=== PATIENT | female | born 1955 | race Caucasian/White ===

== ENCOUNTER 2019-06-14 19:14 | Inpatient (IN) ==
--- NOTE | 2019-06-14 20:38 | DR.GENAD ---
HPI Time Seen Time Seen by Provider: 06/14/19 20:15 PCP Primary Care Physician: DENISE AGUIRRE HPI Comment HPI Comment: PATIENT IS A 64 YEAR OLD FEMALE IN THE ER WITH SLURRED SPEECH AND INCREASING RIGHT SIDED WEAKNESS NOTED TODAY. PATIENT HAD A STROKE ONE WEEK AGO AND WAS TRANSFERRED TO [place] WHERE SHE HAD A COMPLETE WORK UP TODAY. THE SON OBSERVED HER ACTING SIMILAR TO WHEN SHE HAD THE STROKE. PATIENT HAVE HISTORY OF DIABETES AND HAVE NOT BEEN EATING OR DRINKING. SHE IS WEAK SHE ALSO HAVE BEEN SLEEPING POORLY. PATIENT SAID SHE FEEL DIFFERENT FROM WHEN SHE DID WITH THE STROKE SYMPTOMS. CURRENTLY IN THE EMERGENCY ROOM PATIENT IS ANSWERING QUESTION APPROPRIATELY. AND THE SPEECH IS CLEAR. SHE DENIES FEVER. GLUCOSE CHECK AT HOME BEFOR COMING TO THE EMERGENCY ROOM WAS 122. Complaint/Symptoms Chief Complaint Doctors Comments: SLURRED SPEECH AND INCREASING RIGHT SIDED WEAKNESS. NOTED TODAY. Chief Complaint:: PT STATES SHE JUST HAD A STROKE THE AND WAS SENT TO [place], SON STATES HE NOTED SHE HAD SLURRED SPEECH AND LEFT SIDE WASNT WORKING RIGHT, UPON ASKING TRIAGE QUESTIONS PT NOTED TO BE DIABETIC AND HAS NOT EATEN OR DRANK SINCE LAST NIGHT OR CHECKED SUGAR OR TOOK INSULIN , PT STATES SHE DOESNT FEEL THE SAME WAY WHEN SHE HAD HER STROKE THAT IT MIGHT BE FROM HER NOT EATING AND NOT SLEEPING, EDUCATED PT THE IMPORTANCE OF CHECKING SUGAR TAKING MEDICATIONS PRESCRIBED AND EATING AND DRINKING, PT AND SON STATES SUGAR 10 MINS PRODUCTION OFFICER NOTED TO BE 122, BILATERAL MANAGER FAST FOOD NOTED TO BE EQUAL AND PUPILS EQUAL, PT ANSWERS QUESTIONS APPROPRIATE. Self Treatment fo Chief Complaint: N/A Nurses notes reviewed Nurses Notes Review: Yes Source History Provided: Patient Mode of Arrival Mode of Arrival: Ambulatory Timing Onset of Chief Complaint: 06/14/19 Came on: Suddenly Duration Duration: Since Onset Duration: Hours Location Location: RIGHT SIDED WEAKNESS. Severity Severity: Moderate Modifying Factors Worsens:: MOVEMENT Improves:: RESTING Associated Signs and Symptoms Associated Signs and Symptoms: SLURRED SPEECH Other History Other History: DIABETES MELLITUS, HYPERTENSION. PMH PMH Past Medical History: Yes Past Medical History: Anxiety, Depression, Diabetes and Hypertension Past Medical History Comment: AFIB Past Surgical History: Yes Surgical History: Cholecystectomy, Hysterectomy and Lithotripsy Past Surgical History Comment: TRAUMA TO RIGHT BREAST CATARACT BILATERAL MILK DUCT LEFT BREAST Family History History of Family Medical Conditions: Yes Family Medical History: Cancer Social History Does patient currently use any type of tobacco product: No Have you used tobacco products in the last 12 months: No Type of Tobacco Use: None Does any household member use tobacco: No Alcohol Use: None Do you use any recreational Drugs:: No Lives With: Family Lives Where: Home infectious screening In the last 2 months have you had wt loss of >10#?: NO Have you had fever, night sweats or hemotysis?: No Have you traveled outside the country in the last 6 months?: No Isolation: Standard ROS Review of Systems Constitutional: See HPI, Fever, Weakness and Fatigue Eyes: No Symptoms Reported and See HPI; negative Eye Pain, Blurred Vision, Discharge, Photophobia and Diplopia ENTM: No Symptoms Reported and See HPI; negative Ear Pain, Nose Discharge, Nose Congestion and Throat Pain Respiratoy: No Symptoms Reported and See HPI; negative Productive Cough, Short of Breath and Wheezing Cardiovascular: No Symptoms Reported and See HPI; negative Chest Pain, Edema and Palpitations Gastrointestinal/Abdominal: No Symptoms Reported and See HPI; negative Abdominal Pain, Constipation, Diarrhea, Nausea and Vomiting Genitourinary: No Symptoms Reported and See HPI; negative Dysuria, Frequency and Hematuria Neurological: See HPI, Numbness (LEFT SIDE.), Paresthesia (LEFT SIDE), Pre- existing Deficit (LEFT SIDED WEAKNESS.) and Weakness Musculoskeletal: No Symptoms Reported, See HPI and Muscle Pain (RIGHT SIDED MUSCLE WEAKNESS.); negative Back Pain Integumentary: No Symptoms Reported and See HPI; negative Change in Color, Rash and Juandice Hematologic/Lymphatic: No Symptoms Reported and See HPI; negative Easy Bleeding, Easy Bruising and Swollen Glands Endocrine: No Symptoms Reported and See HPI; negative Increased Thirst, Increased Urine and Decreased Appetite Psychiatric: No Symptoms Reported and See HPI All Other Systems: Reviewed and Negative PE Vital Signs Vitals: Temperature 99 F Pulse Rate [Brachial] 73 Pulse Rate 76 Respiratory Rate 18 Blood Pressure [Left Arm] 159/77 Blood Pressure 179/81 O2 Sat by Pulse Oximetry 95 General Limitations: No Limitations General Appearance: Alert and In No Apparent Distress Head Head Exam: Normal Inspection and Atraumatic Eyes Eye exam: Normal Appearance, PERRL and EOMI; negative Scleral Icterus and Conjunctival Injection ENT ENT Exam: Normal Exam, Normal Oropharynx, Normal External Ear Exam and TM's Normal Bilaterally External Ear Exam: Normal External Inspection; negative Mastoid Tenderness, Pain with Movement and External Tenderness TM/Canal Exam: Bilateral: Normal Nose Exam: Normal Nose Exam; negative Sinus Tenderness, Nasal Deviation and Septal Hematoma Mouth Exam: Normal Inspection; negative Trismus, Lip Swelling and Tongue Swelling Throat Exam: Normal Inspection; negative Tonsillar Erythema, Tonsillomegaly and Tonsillar Exudate Neck Neck Exam: Normal Inspection and Trachea Midline; negative Tenderness and Lymphadenopathy Chest Chest Inspection: Normal Inspection and Symmetric Chest Wall Rise; negative Tenderness Respiratory Respiratory Exam: Normal Lung Sounds Bilat; negative Accessory Muscle Use, Chest Wall Tenderness and Respiratory Distress Respiratory Exam: Bilateral: Rhonchi and Lower: Rhonchi Cardiovascular Cardiovascular Exam: Regular Rate, Normal Rhythm and Normal Heart Sounds; negative Systolic Murmur and Diastolic Murmur Abdominal Exam Abdominal Exam: Normal Inspection, Normal Bowel Sounds and Soft; negative Tenderness Extremities Extremities Exam: Normal Inspection Back Back Exam: Normal Inspection Neurologic Neurological Exam: Alert and Oriented X3; negative CN II-XII Intact (RIGHT SIDED WEAKNESS) and Motor Sensory Deficit Psychiatric Psychiatric Exam: Normal Affect and Normal Mood Skin Skin Exam: Warm, Dry, Intact and Normal Color MDM Additional Information Additional Information Obtained From: Family Differential Diagnosis Differential Diagnosis: RIGHT SIDED WEAKNESS. TIA, CVA, UTI, GA, . COURSE Treatment Treatment: SEE ORDERS. Consultation Consultation Comments: DISCUSS PATIENT WITH DR.SINCLAIR DE GUZMAN. WILL ADMIT PATIENT. Education/Counseling Education/Counseling: Patient Educated On: Diagnosis ROR Labs Reviewed Laboratory Results Reviewed?: Yes Result Diagrams: 06/21/19 04:20 06/21/19 04:20 Laboratory: 06/17/19 01:11 Blood Blood Culture - Final 06/17/19 01:08 Blood Blood Culture - Final 06/20/19 03:55 Stool Stool Culture - Final 06/20/19 03:55 Stool - Final 06/15/19 09:10 Blood Blood Culture - Final 06/15/19 09:06 Blood Blood Culture - Final 06/15/19 11:25 Urine,Clean Catch Urine Culture - Final WBC 14.5 X10^3/uL (3.6-10.0) H 06/21/19 04:20 RBC 3.63 X10^6/uL (3.5-5.4) 06/21/19 04:20 Hgb 10.7 g/dL (12.0-16.0) L 06/21/19 04:20 Hct 32.2 % (36.0-47.0) L 06/21/19 04:20 MCV 88.8 fL (80.0-100.0) 06/21/19 04:20 MCH 29.4 pg (27.0-34.0) 06/21/19 04:20 MCHC 33.1 g/dL (33.0-35.0) 06/21/19 04:20 RDW 12.8 % (11.6-16.5) 06/21/19 04:20 Plt Count 288 X10^3/uL (150.0-450.0) 06/21/19 04:20 Plt Count Comment Adequate (ADEQUATE) 06/15/19 04:08 MPV 8.4 fL (7.4-11.0) 06/21/19 04:20 Neut % (Auto) 64.1 % (42.0-75.0) 06/21/19 04:20 Lymph % (Auto) 25.7 % (21.0-51.0) 06/21/19 04:20 [place] % (Auto) 7.8 % (0.0-13.0) 06/21/19 04:20 Eos % (Auto) 1.7 % (0.9-2.9) 06/21/19 04:20 Baso % (Auto) 0.7 % (0.2-1.0) 06/21/19 04:20 Neut # (Auto) 9.3 x10^3/uL (2.2-4.8) H 06/21/19 04:20 Lymph # (Auto) 3.7 X10^3/uL (1.3-2.9) H 06/21/19 04:20 [place] # (Auto) 1.1 x10^3/uL (0.3-0.8) H 06/21/19 04:20 Eos # (Auto) 0.2 x10^3/uL (0.0-0.2) 06/21/19 04:20 Baso # (Auto) 0.1 X10^3/uL (0.0-0.1) 06/21/19 04:20 Absolute Nucleated RBC 0.0 /100WBC 06/21/19 04:20 Total Counted 100 06/15/19 04:08 Neutrophils % (Manual) 69 % (39-76) 06/15/19 04:08 Lymphocytes % (Manual) 25 % (13-43) 06/15/19 04:08 Monocytes % (Manual) 5 % (4-9) 06/15/19 04:08 Eosinophils % (Manual) 1 % (0-6) 06/15/19 04:08 Plt Morphology Comment Normal (NORMAL) 06/15/19 04:08 RBC Morphology Normal (NORMAL) 06/15/19 04:08 PT 13.7 SECONDS (11.8-14.3) 06/14/19 20:40 INR Target Range - 06/14/19 20:40 INR 1.09 (0.8-1.3) 06/14/19 20:40 APTT 34.3 SECONDS (22.9-36.5) 06/14/19 20:40 PTT Comment - 06/14/19 20:40 Sodium 136 mmol/L (136-145) 06/21/19 04:20 Corrected Sodium 137 mmol/L (136-145) 06/21/19 04:20 Potassium 3.9 mmol/L (3.5-5.1) 06/21/19 04:20 Chloride 101 mmol/L (98-107) 06/21/19 04:20 Carbon Dioxide 25.0 mmol/L (21-32) 06/21/19 04:20 BUN 21 mg/dL (7-18) H 06/21/19 04:20 Creatinine 1.34 mg/dL (0.55-1.02) H 06/21/19 04:20 Est GFR (MDRD) Af Amer 51 (>60) L 06/21/19 04:20 Est GFR (MDRD) Non-Af 42 (>60) L 06/21/19 04:20 Glucose 126 mg/dL (65-99) H 06/21/19 04:20 POC Glucose (mg/dL) 168 mg/dL (65-99) H 06/21/19 11:35 Hemoglobin A1c 7.7 % 06/15/19 04:08 Calcium 8.4 mg/dL (8.5-10.1) L 06/21/19 04:20 Corrected Calcium 9.5 mg/dL (8.5-10.1) 06/21/19 04:20 Total Bilirubin 0.40 mg/dL (0.2-1.0) 06/21/19 04:20 AST 12 Units/L (15-37) L 06/21/19 04:20 ALT 14 Units/L (12-78) 06/21/19 04:20 Alkaline Phosphatase 72 Units/L (46-116) 06/21/19 04:20 Creatine Kinase 48 Units/L (26-192) 06/15/19 11:15 CK-MB (CK-2) < 1.0 ng/mL (0-4.0) 06/15/19 11:15 CK/CKMB % Calc 2.1 % (<4) 06/15/19 11:15 Troponin I < 0.02 ng/mL (0-1.5) 06/15/19 11:15 Total Protein 6.5 g/dL (6.4-8.2) 06/21/19 04:20 Albumin 2.6 g/dL (3.4-5.0) L 06/21/19 04:20 Globulin 3.9 g/dL (2.5-4.5) 06/21/19 04:20 Albumin/Globulin Ratio 0.7 Ratio (1.1-2.1) L 06/21/19 04:20 Free T4 1.03 ng/dL (0.76-1.46) 06/18/19 04:15 TSH 3rd Generation 0.893 uIU/mL (0.358-3.74) 06/18/19 04:15 Specimen Type Clean catch urine 06/20/19 12:45 Urine Color Yellow (YELLOW) 06/20/19 12:45 Urine Appearance Slightly hazy (CLEAR) 06/20/19 12:45 Urine pH 6.0 (5.0 - 8.0) 06/20/19 12:45 Ur Specific [place] 1.015 (1.000-1.030) 06/20/19 12:45 Urine Protein 4+ (NEGATIVE) 06/20/19 12:45 Urine Glucose (UA) Negative (NEGATIVE) 06/20/19 12:45 Urine Ketones Negative (NEGATIVE) 06/20/19 12:45 Urine Occult Blood 2+ (NEGATIVE) 06/20/19 12:45 Urine Nitrite Negative (NEGATIVE) 06/20/19 12:45 Urine Bilirubin Negative (NEGATIVE) 06/20/19 12:45 Urine Urobilinogen Normal (NORMAL) 06/20/19 12:45 Ur Leukocyte Esterase Negative (NEGATIVE) 06/20/19 12:45 Urine RBC 3-5 /HPF (0-3) A 06/20/19 12:45 Urine WBC None seen /HPF (0-5) 06/20/19 12:45 Ur Squamous Epith Cells Few /HPF (NEGATIVE) 06/20/19 12:45 Urine Bacteria Trace /HPF (NEGATIVE) 06/20/19 12:45 Urine Mucus Few /HPF (NEGATIVE) 06/15/19 11:25 Ur Culture Indicated? No/not indicated 06/20/19 12:45 Stool Description 65 g brown/informed 06/20/19 03:55 Stl Occult Blood (IFOB) Negative (NEGATIVE) 06/20/19 03:55 Stool for White Cells Negative (NEGATIVE) 06/20/19 03:55 Influenza Type A (PCR) Negative (NEGATIVE) 06/18/19 14:23 Influenza Type B (PCR) Negative (NEGATIVE) 06/18/19 14:23 XRAY XRAY Interpreted by: Radiologist XRAY Findings: REPORT NOTED ON RECORD AND DISCUSSED WITH PATIENT AND FAMILY. EKG Rate: 74 [place]: Normal Rhythm: NSR and PACs Block: None Hypertrophy: LVH Opioid Opioid Risk Tool Age (Loy box if 16-45): No Total: 0 Total Score Risk Category: Low Risk Copyright: Kunal WILSON predicting aberrant behaviors Diagnosis Discharge Problem: Acute right-sided weakness, Brain TIA, Recent cerebrovascular accident (CVA) Instructions Instructions: Hospital Discharge After a Stroke Stroke Prevention, Oldy-fp-Vpfr Emotional Health After Stroke Transient Ischemic Attack, Odqt-oi-[id number] Weakness, Ybhl-gj-Swsp Dehydration, Adult, Iwww-ds-Leyh Warning Signs of a Stroke Form - Blood Pressure Record Sheet Hypertension, Qjzq-sl-[id number] Rehabilitation After a Stroke, Adult Managing Your Hypertension Forms: Patient Portal
[2019-06-14 20:47] LABS: BASOPHILS # (AUTO) 0.1 X10^3/uL (0.0-0.1); BASOPHILS % (AUTO) 0.6 % (0.2-1.0); EOSINOPHILS # (AUTO) 0.3 x10^3/uL (0.0-0.2); HEMATOCRIT 36.1 % (36.0-47.0); LYMPHOCYTES # (AUTO) 2.9 X10^3/uL (1.3-2.9); LYMPHOCYTES % (AUTO) 21.3 % (21.0-51.0); MEAN CORPUSCULAR HEMOGLOBIN 29.3 pg (27.0-34.0); MEAN CORPUSCULAR HGB CONC 33.1 g/dL (33.0-35.0); MEAN CORPUSCULAR VOLUME 88.4 fL (80.0-100.0); MEAN PLATELET VOLUME 7.2 fL (7.4-11.0); MONOCYTES % (AUTO) 7.1 % (0.0-13.0); NEUTROPHILS # (AUTO) 9.5 x10^3/uL (2.2-4.8); PLATELET COUNT 361 X10^3/uL (150.0-450.0); RED BLOOD COUNT 4.08 X10^6/uL (3.5-5.4); RED CELL DISTRIBUTION WIDTH 13.4 % (11.6-16.5); WHITE BLOOD COUNT 13.7 X10^3/uL (3.6-10.0)
[2019-06-14 21:04] LABS: BLOOD UREA NITROGEN 28 mg/dL (7-18); CALCIUM 9.1 mg/dL (8.5-10.1); CARBON DIOXIDE 25.6 mmol/L (21-32); CHLORIDE 103 mmol/L (98-107); COR NA(FOR HYPERGLY) 138 mmol/L (136-145); CREATININE 1.65 mg/dL (0.55-1.02); SODIUM 137 mmol/L (136-145); TROPONIN I < 0.02 ng/mL (0-1.5); eGFR NON BLACK RACES 33 (>60)
[2019-06-14 21:09] LABS: ALANINE AMINOTRANSFERASE 11 Units/L (12-78); ALBUMIN 3.2 g/dL (3.4-5.0); ALKALINE PHOSPHATASE 96 Units/L (46-116); ASPARTATE AMINO TRANSFERASE 14 Units/L (15-37); CKMB % 1.6 % (<4); COR CA(FOR HYPOALB) 9.7 mg/dL (8.5-10.1); CREATINE KINASE 61 Units/L (26-192); CREATINE KINASE MB < 1.0 ng/mL (0-4.0); TOTAL PROTEIN 7.5 g/dL (6.4-8.2)
--- NOTE | 2019-06-14 21:14 | CT ---
STUDY: CT HEAD WITHOUT CONTRAST HISTORY: Slurred speech. Stroke. COMPARISON: April 07, 2018. TECHNIQUE: Multiple axial images of the head were obtained from the skull base to the vertex without administration of IV contrast. Automated exposure control (AEC) was utilized to adjust the MA and/or kV. Findings: The sulci, cisterns and ventricles are prominent consistent with diffuse volume loss. There are scattered foci of low attenuation in the periventricular and subcortical white matter of both hemispheres. This is a nonspecific finding which likely represents microangiopathic change in a patient of this age. There is an infarct with encephalomalacia in the right occipital lobe, with extension in the posterior medial aspect of the right temporal lobe. There is also extension of infarction into the right thalamus. There is no evidence of acute territorial infarction, hemorrhage, mass, mass effect or midline shift. There are no abnormal extra-axial fluid collections. There is no evidence of acute osseous abnormality or significant soft tissue swelling. IMPRESSION: 1. No evidence of acute intracranial abnormality. 2. Chronic infarct in the right occipital lobe with extension into the right posterior medial temporal lobe and right thalamus. 3. Nonspecific white matter change and volume loss as described. 4. If there is strong clinical concern for acute infarction, then an MRI examination of the brain could be performed for further evaluation. However, if there are no deficits on neurologic exam, there are no abnormalities identified on this study which require immediate imaging follow-up on an emergent basis. Follow-up MRI could be considered on an outpatient basis as clinically warranted. Reported By:
--- NOTE | 2019-06-14 21:20 | RAD ---
STUDY: CHEST, ONE VIEW History: Slurred speech. Stroke. Comparison: None. Findings: The trachea is midline. The cardiac silhouette appears enlarged. The lungs are clear of consolidation, significant infiltrate, effusion, or pneumothorax. The mediastinum and osseous structures are unremarkable. IMPRESSION: 1. No acute pulmonary abnormality. 2. Cardiomegaly. Reported By:
[2019-06-14] MEDS ORDERED: ZOFRAN INJ 4 MG VIAL ONE (21:21)
[2019-06-14] MEDS ORDERED: ZOFRAN INJ 4 MG VIAL IVP ONE (21:22)
[2019-06-14] MEDS: NS 1000 ML 1,000 ML IV SCH (21:49)
[2019-06-14] MEDS ORDERED: CATAPRES TAB 0.2 MG ONE (22:27)
[2019-06-14] MEDS: PLAVIX PO SCH (22:32)
[2019-06-14] MEDS ORDERED: CATAPRES TAB 0.2 MG PO ONE (22:32)
[2019-06-15 05:17] LABS: BASOPHILS # (AUTO) 0.2 X10^3/uL (0.0-0.1); BASOPHILS % (AUTO) 1.3 % (0.2-1.0); EOSINOPHILS # (AUTO) 0.2 x10^3/uL (0.0-0.2); EOSINOPHILS % (AUTO) 0.9 % (0.9-2.9); HEMOGLOBIN 11.1 g/dL (12.0-16.0); LYMPHOCYTES # (AUTO) 3.5 X10^3/uL (1.3-2.9); LYMPHOCYTES % (AUTO) 21.2 % (21.0-51.0); MEAN CORPUSCULAR HGB CONC 32.6 g/dL (33.0-35.0); MEAN CORPUSCULAR VOLUME 88.9 fL (80.0-100.0); MEAN PLATELET VOLUME 8.6 fL (7.4-11.0); MONOCYTES # (AUTO) 0.9 x10^3/uL (0.3-0.8); MONOCYTES % (AUTO) 5.2 % (0.0-13.0); NEUTROPHILS # (AUTO) 11.7 x10^3/uL (2.2-4.8); NEUTROPHILS % (AUTO) 71.4 % (42.0-75.0); PLATELET COUNT 359 X10^3/uL (150.0-450.0); RED BLOOD COUNT 3.82 X10^6/uL (3.5-5.4); RED CELL DISTRIBUTION WIDTH 13.2 % (11.6-16.5); WHITE BLOOD COUNT 16.3 X10^3/uL (3.6-10.0)
[2019-06-15 05:21] LABS: ALBUMIN 2.8 g/dL (3.4-5.0); CALCIUM 8.8 mg/dL (8.5-10.1); CARBON DIOXIDE 24.2 mmol/L (21-32); COR CA(FOR HYPOALB) 9.8 mg/dL (8.5-10.1); CREATININE 1.65 mg/dL (0.55-1.02); TOTAL PROTEIN 6.8 g/dL (6.4-8.2)
[2019-06-15 05:41] LABS: PLATELET MORPHOLOGY COMMENT NORMAL (NORMAL)
[2019-06-15 05:42] LABS: CKMB % 1.8 % (<4); CREATINE KINASE 55 Units/L (26-192); CREATINE KINASE MB < 1.0 ng/mL (0-4.0); TROPONIN I < 0.02 ng/mL (0-1.5)
[2019-06-15] MEDS: ASPIRIN EC 81 MG PO SCH (08:56)
[2019-06-15] MEDS: TENORMIN PO SCH ×2 (08:56→21:08)
[2019-06-15] MEDS: PLAVIX PO SCH (08:58)
[2019-06-15] MEDS ORDERED: LEXAPRO ONE (10:50)
[2019-06-15] MEDS: LEXAPRO PO SCH (11:20)
[2019-06-15] MEDS: ROCEPHIN VIAL 1 GRAM IVP SCH (11:20)
[2019-06-15] MEDS: DIOVAN TAB 80 MG PO SCH (11:20)
[2019-06-15 11:31] VITALS: BMI 36.6
[2019-06-15 11:47] LABS: CKMB % 2.1 % (<4); CREATINE KINASE 48 Units/L (26-192); CREATINE KINASE MB < 1.0 ng/mL (0-4.0); TROPONIN I < 0.02 ng/mL (0-1.5)
[2019-06-15 12:15] LABS: BILIRUBIN,URINE NEGATIVE (NEGATIVE); BLOOD/HEMOGLOBIN,URINE 1+ (NEGATIVE); GLUCOSE, URINE NEGATIVE (NEGATIVE); KETONES,URINE NEGATIVE (NEGATIVE); LEUKOCYTE ESTERASE ,URINE 1+ (NEGATIVE); NITRITES,URINE NEGATIVE (NEGATIVE); PROTEIN,URINE 4+ (NEGATIVE); UROBILINOGEN,URINE NORMAL (NORMAL)
[2019-06-15 12:24] LABS: APPEARANCE,URINE HAZY (CLEAR); COLOR,URINE YELLOW (YELLOW)
[2019-06-15 12:25] LABS: BACTERIA,URINE TRACE /HPF (NEGATIVE); MUCUS,URINE FEW /HPF (NEGATIVE); SQUAMOUS EPITHELIAL CELL,UR FEW /HPF (NEGATIVE)
[2019-06-15] MEDS: NS 1000 ML 1,000 ML IV SCH ×3 (12:30→21:09)
--- NOTE | 2019-06-15 12:43 | DR.H&P ---
H&P - History & Physical for Day of: H&P Date: 06/14/19 - Chief Complaint Chief Complaint: weakness, poor appetite - History of Present Illness History of Present Illness: 64 WF ER ADMISSION, PT STATES SHE JUST HAD A STROKE THE AND WAS SENT TO [place], SON STATES HE NOTED SHE HAD SLURRED SPEECH AND LEFT SIDE WASNT WORKING RIGHT, UPON ASKING TRIAGE QUESTIONS PT NOTED TO BE DIABETIC AND HAS NOT EATEN OR DRANK SINCE LAST NIGHT OR CHECKED SUGAR OR TOOK INSULIN , PT STATES SHE DOESNT FEEL THE SAME WAY WHEN SHE HAD HER STROKE THAT IT MIGHT BE FROM HER NOT EATING AND NOT SLEEPING, EDUCATED PT THE IMPORTANCE OF CHECKING SUGAR TAKING MEDICATIONS PRESCRIBED AND EATING AND DRINKING, PT AND SON STATES SUGAR 10 MINS RUBBER ENGRAVER NOTED TO BE 122, BILATERAL DATABASE ADMINISTRATION MANAGER NOTED TO BE EQUAL AND PUPILS EQUAL, PT ANSWERS QUESTIONS APPROPRIATE. - Past Medical History Past Medical History: Anxiety, CVA, Depression, Diabetes, Hypertension, Kidney Stones - Past Surgical History Surgical History: Cholecystectomy, Hysterectomy, Lithotripsy, Other - Family History Family Medical History: Cancer - Social History Does patient currently use any type of tobacco product: No Have you used tobacco products in the last 12 months: No Type of Tobacco Use: None Does any household member use tobacco: No Alcohol Use: None Drug Use: None - Medications Home Medications: morphine Adverse Reaction (Verified 04/07/19 11:11) Ekmcvnc-Fbt-Kve Reductase Inhibitor Adverse Reaction (Verified 04/07/19 11:11) CONTINUE taking the following medications aspirin [Aspir-81] 81 mg PO DAILY 06/14/19 [History] atenolol 25 mg PO BID 06/14/19 [History] - Review of Systems Constitutional: Weakness Eyes: No Symptoms Reported ENT: No Symptoms Reported Respiratory: No Symptoms Reported Cardiovascular: No Symptoms Reported Gastrointestinal: Nausea, Other (POOR APPETITE) Genitourinary: No Symptoms Reported Musculoskeletal: No Symptoms Reported Skin: No Symptoms Reported Neurological: Weakness (GENERALIZED WEAKNES) - Physical Exam Vital Signs: Temperature 99.2 F Pulse Rate [Brachial] 68 Pulse Rate 76 Respiratory Rate 20 Blood Pressure [Left Arm] 135/77 Blood Pressure 179/81 O2 Sat by Pulse Oximetry 97 Oriented: Normal Eyes: Normal Ear: Normal Nose: Normal Throat: Normal Respiratory: RLL Diminished, LLL Diminished Cardiovascular: Normal : Normal Auscultation: Bowel Sounds: Normal Palpation: Normal Tenderness: Normal Skin: Normal Musculoskeletal: Normal Mood Description: Calm Affect: Anxious Speech Pattern: Clear, Appropriate - Assessment/Plan (1) Weakness Status: Acute Plan: ADMIT, SERIAL CE, CXR EKG ON ADMISSION. CT HEAD ON ADMISSION, BP CONTROL, BS CONTROL. GENTLE IV HYDRATION. ADMISSION LABS, REPREAT AM CBC CMP (2) Dehydration Status: Acute - Allergies Allergies/Adverse Reactions: Allergies Allergy/AdvReac Type Severity Reaction Status Date / Time morphine AdvReac Verified 04/07/19 11:11 Rdxysdz-Ssi-Anb Reductase AdvReac Verified 04/07/19 11:11 Inhibitor
--- NOTE | 2019-06-15 12:58 | PCM.PROG ---
Progress Note - Progress Note for Day of Date of Exam: 06/15/19 - Subjective Subjective: PT IS 64 WF ER ADMISSION WITH CO WEAKNESS, POOR PO INTAKE, SLURRED SPEECH PER FAMILY. PT HAD CT HEAD IN ER WITHOUT ACUTE FINDGINS. PT HAS WBC 16.3 AND IT WAS WBC 13.7,BUN28, CREAT 1.65. PT REPORTS FEELING BETTER THIS AM, "JUST SLEEPY". PT STARTED ON ROCEPHIN IV DAILY, ENCOURAGE ORAL HYDRATION. PT HAD NORMAL SPEECH, MOVEMENT OF UPPER AND LOWER EXTREMITIES, DENIES ANY CP OR SOB THIS AM. - Past Medical Family Social History Past Med/Fam/Surg Hx: No changes since H&P Allergies: Allergies morphine Adverse Reaction (Verified 04/07/19 11:11) Ogjkmhr-Xkn-Xzf Reductase Inhibitor Adverse Reaction (Verified 04/07/19 11:11) - Review of Systems ROS: No change since H&P - Vital Signs and I&O's Vital Signs: Temperature 99.2 F Pulse Rate [Brachial] 68 Pulse Rate 76 Respiratory Rate 20 Blood Pressure [Left Arm] 135/77 Blood Pressure 179/81 O2 Sat by Pulse Oximetry 97 Intake and Output: Intake & Output 06/13/19 06/14/19 06/15/19 06/16/19 11:59 11:59 11:59 11:59 Intake Total 100 / 100 Balance 100 / 100 - Physical Exam Oriented: Normal Eyes: Normal Ear: Normal Nose: Normal Throat: Normal Respiratory: Diminished Cardiovascular: Normal : Normal Auscultation: Bowel Sounds: Normal Tenderness: Normal Skin: Normal Musculoskeletal: Normal Mood Description: Calm Affect: Anxious Speech Pattern: Clear, Appropriate - Laboratory and Diagnostics Result Diagrams: 06/15/19 04:08 06/15/19 04:08 Labs: Laboratory WBC 16.3 X10^3/uL (3.6-10.0) H 06/15/19 04:08 RBC 3.82 X10^6/uL (3.5-5.4) 06/15/19 04:08 Hgb 11.1 g/dL (12.0-16.0) L 06/15/19 04:08 Hct 34.0 % (36.0-47.0) L 06/15/19 04:08 MCV 88.9 fL (80.0-100.0) 06/15/19 04:08 MCH 29.0 pg (27.0-34.0) 06/15/19 04:08 MCHC 32.6 g/dL (33.0-35.0) L 06/15/19 04:08 RDW 13.2 % (11.6-16.5) 06/15/19 04:08 Plt Count 359 X10^3/uL (150.0-450.0) 06/15/19 04:08 Plt Count Comment Adequate (ADEQUATE) 06/15/19 04:08 MPV 8.6 fL (7.4-11.0) 06/15/19 04:08 Neut % (Auto) 71.4 % (42.0-75.0) 06/15/19 04:08 Lymph % (Auto) 21.2 % (21.0-51.0) 06/15/19 04:08 [place] % (Auto) 5.2 % (0.0-13.0) 06/15/19 04:08 Eos % (Auto) 0.9 % (0.9-2.9) 06/15/19 04:08 Baso % (Auto) 1.3 % (0.2-1.0) H 06/15/19 04:08 Neut # (Auto) 11.7 x10^3/uL (2.2-4.8) H 06/15/19 04:08 Lymph # (Auto) 3.5 X10^3/uL (1.3-2.9) H 06/15/19 04:08 [place] # (Auto) 0.9 x10^3/uL (0.3-0.8) H 06/15/19 04:08 Eos # (Auto) 0.2 x10^3/uL (0.0-0.2) 06/15/19 04:08 Baso # (Auto) 0.2 X10^3/uL (0.0-0.1) H 06/15/19 04:08 Absolute Nucleated RBC 0.0 /100WBC 06/15/19 04:08 Total Counted 100 06/15/19 04:08 Neutrophils % (Manual) 69 % (39-76) 06/15/19 04:08 Lymphocytes % (Manual) 25 % (13-43) 06/15/19 04:08 Monocytes % (Manual) 5 % (4-9) 06/15/19 04:08 Eosinophils % (Manual) 1 % (0-6) 06/15/19 04:08 Plt Morphology Comment Normal (NORMAL) 06/15/19 04:08 RBC Morphology Normal (NORMAL) 06/15/19 04:08 PT 13.7 SECONDS (11.8-14.3) 06/14/19 20:40 INR Target Range - 06/14/19 20:40 INR 1.09 (0.8-1.3) 06/14/19 20:40 APTT 34.3 SECONDS (22.9-36.5) 06/14/19 20:40 PTT Comment - 06/14/19 20:40 Sodium 139 mmol/L (136-145) 06/15/19 04:08 Corrected Sodium 140 mmol/L (136-145) 06/15/19 04:08 Potassium 4.7 mmol/L (3.5-5.1) 06/15/19 04:08 Chloride 105 mmol/L (98-107) 06/15/19 04:08 Carbon Dioxide 24.2 mmol/L (21-32) 06/15/19 04:08 BUN 28 mg/dL (7-18) H 06/15/19 04:08 Creatinine 1.65 mg/dL (0.55-1.02) H 06/15/19 04:08 Est GFR (MDRD) Af Amer 40 (>60) L 06/15/19 04:08 Est GFR (MDRD) Non-Af 33 (>60) L 06/15/19 04:08 Glucose 134 mg/dL (65-99) H 06/15/19 04:08 Calcium 8.8 mg/dL (8.5-10.1) 06/15/19 04:08 Corrected Calcium 9.8 mg/dL (8.5-10.1) 06/15/19 04:08 Total Bilirubin 0.30 mg/dL (0.2-1.0) 06/15/19 04:08 AST 13 Units/L (15-37) L 06/15/19 04:08 ALT 9 Units/L (12-78) L 06/15/19 04:08 Alkaline Phosphatase 85 Units/L (46-116) 06/15/19 04:08 Creatine Kinase 48 Units/L (26-192) 06/15/19 11:15 CK-MB (CK-2) < 1.0 ng/mL (0-4.0) 06/15/19 11:15 CK/CKMB % Calc 2.1 % (<4) 06/15/19 11:15 Troponin I < 0.02 ng/mL (0-1.5) 06/15/19 11:15 Total Protein 6.8 g/dL (6.4-8.2) 06/15/19 04:08 Albumin 2.8 g/dL (3.4-5.0) L 06/15/19 04:08 Globulin 4.0 g/dL (2.5-4.5) 06/15/19 04:08 Albumin/Globulin Ratio 0.7 Ratio (1.1-2.1) L 06/15/19 04:08 Specimen Type Clean catch urine 06/15/19 11:25 Urine Color Yellow (YELLOW) 06/15/19 11:25 Urine Appearance Hazy (CLEAR) 06/15/19 11:25 Urine pH 5.0 (5.0 - 8.0) 06/15/19 11:25 Ur Specific [place] 1.020 (1.000-1.030) 06/15/19 11:25 Urine Protein 4+ (NEGATIVE) 06/15/19 11:25 Urine Glucose (UA) Negative (NEGATIVE) 06/15/19 11:25 Urine Ketones Negative (NEGATIVE) 06/15/19 11:25 Urine Occult Blood 1+ (NEGATIVE) 06/15/19 11:25 Urine Nitrite Negative (NEGATIVE) 06/15/19 11:25 Urine Bilirubin Negative (NEGATIVE) 06/15/19 11:25 Urine Urobilinogen Normal (NORMAL) 06/15/19 11:25 Ur Leukocyte Esterase 1+ (NEGATIVE) 06/15/19 11:25 Urine RBC 3-5 /HPF (0-3) A 06/15/19 11:25 Urine WBC 5-10 /HPF (0-5) A 06/15/19 11:25 Ur Squamous Epith Cells Few /HPF (NEGATIVE) 06/15/19 11:25 Urine Bacteria Trace /HPF (NEGATIVE) 06/15/19 11:25 Urine Mucus Few /HPF (NEGATIVE) 06/15/19 11:25 Ur Culture Indicated? Yes/culture set up 06/15/19 11:25 - Plan (1) Weakness Status: Acute Plan: SERIAL CE, CXR EKG ON ADMISSION. CT HEAD ON ADMISSION, CONTINUE BP CONTROL, BS CONTROL. GENTLE IV HYDRATION. REPREAT AM CBC CMP (2) Dehydration Status: Acute (3) UTI (urinary tract infection) Status: Acute Plan: IV ROCEPHIN, UC COLLECTED
[2019-06-15] MEDS: HumuLIN R SC PRN (21:08)
[2019-06-16 05:27] LABS: BASOPHILS # (AUTO) 0.1 X10^3/uL (0.0-0.1); BASOPHILS % (AUTO) 0.5 % (0.2-1.0); EOSINOPHILS # (AUTO) 0.3 x10^3/uL (0.0-0.2); LYMPHOCYTES # (AUTO) 3.7 X10^3/uL (1.3-2.9); LYMPHOCYTES % (AUTO) 26.6 % (21.0-51.0); MEAN CORPUSCULAR HEMOGLOBIN 29.2 pg (27.0-34.0); MEAN CORPUSCULAR HGB CONC 32.5 g/dL (33.0-35.0); MEAN CORPUSCULAR VOLUME 89.7 fL (80.0-100.0); MEAN PLATELET VOLUME 8.8 fL (7.4-11.0); MONOCYTES % (AUTO) 7.2 % (0.0-13.0); NEUTROPHILS # (AUTO) 8.9 x10^3/uL (2.2-4.8); NEUTROPHILS % (AUTO) 63.7 % (42.0-75.0); PLATELET COUNT 338 X10^3/uL (150.0-450.0); RED BLOOD COUNT 3.79 X10^6/uL (3.5-5.4); RED CELL DISTRIBUTION WIDTH 12.9 % (11.6-16.5)
[2019-06-16] MEDS ORDERED: TYLENOL 325 MG TAB PO ONE (05:27)
[2019-06-16] MEDS: TYLENOL 325 MG TAB PO PRN ×2 (05:30→15:53)
[2019-06-16 05:51] LABS: ALBUMIN 2.7 g/dL (3.4-5.0); CALCIUM 8.5 mg/dL (8.5-10.1); CARBON DIOXIDE 23.5 mmol/L (21-32); COR CA(FOR HYPOALB) 9.5 mg/dL (8.5-10.1); CREATININE 1.74 mg/dL (0.55-1.02); TOTAL PROTEIN 6.7 g/dL (6.4-8.2)
[2019-06-16] MEDS: HumuLIN R SC PRN ×2 (05:52→20:34)
[2019-06-16] MEDS ORDERED: LEXAPRO ONE (07:23)
[2019-06-16] MEDS: PLAVIX PO SCH (08:34)
[2019-06-16] MEDS: ROCEPHIN VIAL 1 GRAM IVP SCH (08:34)
[2019-06-16] MEDS: TENORMIN PO SCH ×2 (08:34→20:26)
[2019-06-16] MEDS: DIOVAN TAB 80 MG PO SCH (08:34)
[2019-06-16] MEDS: ASPIRIN EC 81 MG PO SCH (08:34)
[2019-06-16] MEDS: LEXAPRO PO SCH (08:34)
[2019-06-16] MEDS: MILK OF MAGNESIA PO SCH (20:25)
[2019-06-16] MEDS: COLACE CAP 100 MG PO SCH (20:25)
[2019-06-16] MEDS: NS 1000 ML 1,000 ML IV SCH (20:26)
[2019-06-17] MEDS: TYLENOL 325 MG TAB PO PRN ×2 (00:19→09:45)
[2019-06-17] MEDS ORDERED: ZOFRAN INJ 4 MG VIAL IVP PRN (00:32)
[2019-06-17] MEDS ORDERED: ZOFRAN INJ 4 MG VIAL ONE (00:37)
[2019-06-17 05:21] LABS: BASOPHILS # (AUTO) 0.1 X10^3/uL (0.0-0.1); BASOPHILS % (AUTO) 0.6 % (0.2-1.0); EOSINOPHILS # (AUTO) 0.3 x10^3/uL (0.0-0.2); EOSINOPHILS % (AUTO) 1.9 % (0.9-2.9); HEMATOCRIT 34.8 % (36.0-47.0); HEMOGLOBIN 11.3 g/dL (12.0-16.0); LYMPHOCYTES # (AUTO) 3.5 X10^3/uL (1.3-2.9); LYMPHOCYTES % (AUTO) 25.5 % (21.0-51.0); MEAN CORPUSCULAR HEMOGLOBIN 29.1 pg (27.0-34.0); MEAN CORPUSCULAR HGB CONC 32.5 g/dL (33.0-35.0); MEAN CORPUSCULAR VOLUME 89.6 fL (80.0-100.0); MEAN PLATELET VOLUME 8.4 fL (7.4-11.0); MONOCYTES # (AUTO) 1.1 x10^3/uL (0.3-0.8); MONOCYTES % (AUTO) 7.9 % (0.0-13.0); NEUTROPHILS # (AUTO) 8.7 x10^3/uL (2.2-4.8); NEUTROPHILS % (AUTO) 64.1 % (42.0-75.0); PLATELET COUNT 309 X10^3/uL (150.0-450.0); RED BLOOD COUNT 3.89 X10^6/uL (3.5-5.4); RED CELL DISTRIBUTION WIDTH 12.7 % (11.6-16.5); WHITE BLOOD COUNT 13.5 X10^3/uL (3.6-10.0)
[2019-06-17 05:39] LABS: ALBUMIN 2.7 g/dL (3.4-5.0); CALCIUM 8.5 mg/dL (8.5-10.1); CARBON DIOXIDE 24.8 mmol/L (21-32); COR CA(FOR HYPOALB) 9.5 mg/dL (8.5-10.1); CREATININE 1.66 mg/dL (0.55-1.02); TOTAL PROTEIN 6.8 g/dL (6.4-8.2)
[2019-06-17] MEDS: HumuLIN R SC PRN ×4 (06:07→20:46)
[2019-06-17] MEDS ORDERED: LEXAPRO ONE (09:08)
[2019-06-17] MEDS: TENORMIN PO SCH ×2 (09:42→20:45)
[2019-06-17] MEDS: ASPIRIN EC 81 MG PO SCH (09:42)
[2019-06-17] MEDS: LEXAPRO PO SCH (09:42)
[2019-06-17] MEDS: DIOVAN TAB 80 MG PO SCH (09:43)
[2019-06-17] MEDS: ROCEPHIN VIAL 1 GRAM IVP SCH (09:43)
[2019-06-17] MEDS: PLAVIX PO SCH (09:43)
[2019-06-17] MEDS ORDERED: PHARMACY CONSULT - DOSE _____ XX SCH (10:00)
--- NOTE | 2019-06-17 13:29 | PCM.PROG ---
Progress Note - Progress Note for Day of Date of Exam: 06/17/19 - Subjective Subjective: The patient is a 64-year-old white female who was a patient of Dr. Mendez in [place] who was admitted on June 14, 2019 with complaints of TIA and stroke like symptoms which have resolved and was resolved after admission. The patient has had generalized weakness but has had poor oral intake. We started her on gentle IV hydration. She is also being treated for a urinary tract infection and is currently on IV Rocephin. Her white blood cell count was improved today to 14 and her hemoglobin stable at 11 grams. The patients renal function is still slightly elevated with a BUN of 27 and a creatinine of 1.66. Her glucose is 195 and she is a known diabetic. She had serial cardiac enzymes which are stable. She denies any unilateral weakness this morning but just continues to complain of feeling really sleepy. She did have a CT scan of her head on admission to rule out any new signs of acute CVA and only chronic findings were noted. The patient is on Plavis, 75 mg daily and reported a history of atrial fibrillation in the past and has not been anti-coagulant therapy such as Coumadin, Elliquis, or Zarelto. We did reqest her records from [facility] in [place] after her previous stroke to rule out any signs of hemorrhage. That was obtained and she had an acute infarct to the right [employer] territory without hemorrhagic transformation. We obtained this to discuss possible anti-coagulant therapy with a history of atrial fibrillation. Will start eliquis 5mg po bid today. The patient has been in sinus rhythm since she has been admitted. However, her blood pressure is stable. Abd slightly distended on exam, decreased lower bs, pt denies having BM. Will obtain abdomen series. - Past Medical Family Social History Past Med/Fam/Surg Hx: No changes since H&P Allergies: Allergies morphine Adverse Reaction (Verified 04/07/19 11:11) Glotrxb-Wme-Pli Reductase Inhibitor Adverse Reaction (Verified 04/07/19 11:11) - Review of Systems ROS: No change since H&P - Vital Signs and I&O's Vital Signs: Temperature 98.4 F Pulse Rate [Brachial] 73 Pulse Rate 76 Respiratory Rate 20 Blood Pressure [Left Arm] 120/87 Blood Pressure 179/81 O2 Sat by Pulse Oximetry 96 Intake and Output: Intake & Output 06/15/19 06/16/19 06/17/19 06/18/19 11:59 11:59 11:59 11:59 Intake Total 100 / 100 1840 / 1840 1520 / 1520 Output Total 2099 Balance 100 / 100 -260 / -260 -580 / -580 - Physical Exam Oriented: Normal Eyes: Normal Ear: Normal Nose: Normal Throat: Normal Respiratory: Diminished Cardiovascular: Normal : Normal Auscultation: Bowel Sounds: Decreased (rlq, llq) Palpation: Other (mild diffuse distention) Skin: Normal Musculoskeletal: Normal Mood Description: Calm Affect: Anxious Speech Pattern: Clear, Appropriate - Laboratory and Diagnostics Result Diagrams: 06/17/19 04:22 06/17/19 04:22 Labs: 06/15/19 09:10 Blood Blood Culture - Preliminary 06/15/19 09:06 Blood Blood Culture - Preliminary 06/15/19 11:25 Urine,Clean Catch Urine Culture - Final Laboratory WBC 13.5 X10^3/uL (3.6-10.0) H 06/17/19 04:22 RBC 3.89 X10^6/uL (3.5-5.4) 06/17/19 04:22 Hgb 11.3 g/dL (12.0-16.0) L 06/17/19 04:22 Hct 34.8 % (36.0-47.0) L 06/17/19 04:22 MCV 89.6 fL (80.0-100.0) 06/17/19 04:22 MCH 29.1 pg (27.0-34.0) 06/17/19 04:22 MCHC 32.5 g/dL (33.0-35.0) L 06/17/19 04:22 RDW 12.7 % (11.6-16.5) 06/17/19 04:22 Plt Count 309 X10^3/uL (150.0-450.0) 06/17/19 04:22 Plt Count Comment Adequate (ADEQUATE) 06/15/19 04:08 MPV 8.4 fL (7.4-11.0) 06/17/19 04:22 Neut % (Auto) 64.1 % (42.0-75.0) 06/17/19 04:22 Lymph % (Auto) 25.5 % (21.0-51.0) 06/17/19 04:22 [place] % (Auto) 7.9 % (0.0-13.0) 06/17/19 04:22 Eos % (Auto) 1.9 % (0.9-2.9) 06/17/19 04:22 Baso % (Auto) 0.6 % (0.2-1.0) 06/17/19 04:22 Neut # (Auto) 8.7 x10^3/uL (2.2-4.8) H 06/17/19 04:22 Lymph # (Auto) 3.5 X10^3/uL (1.3-2.9) H 06/17/19 04:22 [place] # (Auto) 1.1 x10^3/uL (0.3-0.8) H 06/17/19 04:22 Eos # (Auto) 0.3 x10^3/uL (0.0-0.2) H 06/17/19 04:22 Baso # (Auto) 0.1 X10^3/uL (0.0-0.1) 06/17/19 04:22 Absolute Nucleated RBC 0.0 /100WBC 06/17/19 04:22 Total Counted 100 06/15/19 04:08 Neutrophils % (Manual) 69 % (39-76) 06/15/19 04:08 Lymphocytes % (Manual) 25 % (13-43) 06/15/19 04:08 Monocytes % (Manual) 5 % (4-9) 06/15/19 04:08 Eosinophils % (Manual) 1 % (0-6) 06/15/19 04:08 Plt Morphology Comment Normal (NORMAL) 06/15/19 04:08 RBC Morphology Normal (NORMAL) 06/15/19 04:08 PT 13.7 SECONDS (11.8-14.3) 06/14/19 20:40 INR Target Range - 06/14/19 20:40 INR 1.09 (0.8-1.3) 06/14/19 20:40 APTT 34.3 SECONDS (22.9-36.5) 06/14/19 20:40 PTT Comment - 06/14/19 20:40 Sodium 137 mmol/L (136-145) 06/17/19 04:22 Corrected Sodium 139 mmol/L (136-145) 06/17/19 04:22 Potassium 4.4 mmol/L (3.5-5.1) 06/17/19 04:22 Chloride 103 mmol/L (98-107) 06/17/19 04:22 Carbon Dioxide 24.8 mmol/L (21-32) 06/17/19 04:22 BUN 27 mg/dL (7-18) H 06/17/19 04:22 Creatinine 1.66 mg/dL (0.55-1.02) H 06/17/19 04:22 Est GFR (MDRD) Af Amer 40 (>60) L 06/17/19 04:22 Est GFR (MDRD) Non-Af 33 (>60) L 06/17/19 04:22 Glucose 195 mg/dL (65-99) H 06/17/19 04:22 Hemoglobin A1c 7.7 % 06/15/19 04:08 Calcium 8.5 mg/dL (8.5-10.1) 06/17/19 04:22 Corrected Calcium 9.5 mg/dL (8.5-10.1) 06/17/19 04:22 Total Bilirubin 0.30 mg/dL (0.2-1.0) 06/17/19 04:22 AST 11 Units/L (15-37) L 06/17/19 04:22 ALT 10 Units/L (12-78) L 06/17/19 04:22 Alkaline Phosphatase 88 Units/L (46-116) 06/17/19 04:22 Creatine Kinase 48 Units/L (26-192) 06/15/19 11:15 CK-MB (CK-2) < 1.0 ng/mL (0-4.0) 06/15/19 11:15 CK/CKMB % Calc 2.1 % (<4) 06/15/19 11:15 Troponin I < 0.02 ng/mL (0-1.5) 06/15/19 11:15 Total Protein 6.8 g/dL (6.4-8.2) 06/17/19 04:22 Albumin 2.7 g/dL (3.4-5.0) L 06/17/19 04:22 Globulin 4.1 g/dL (2.5-4.5) 06/17/19 04:22 Albumin/Globulin Ratio 0.7 Ratio (1.1-2.1) L 06/17/19 04:22 Specimen Type Clean catch urine 06/15/19 11:25 Urine Color Yellow (YELLOW) 06/15/19 11:25 Urine Appearance Hazy (CLEAR) 06/15/19 11:25 Urine pH 5.0 (5.0 - 8.0) 06/15/19 11:25 Ur Specific [place] 1.020 (1.000-1.030) 06/15/19 11:25 Urine Protein 4+ (NEGATIVE) 06/15/19 11:25 Urine Glucose (UA) Negative (NEGATIVE) 06/15/19 11:25 Urine Ketones Negative (NEGATIVE) 06/15/19 11:25 Urine Occult Blood 1+ (NEGATIVE) 06/15/19 11:25 Urine Nitrite Negative (NEGATIVE) 06/15/19 11:25 Urine Bilirubin Negative (NEGATIVE) 06/15/19 11:25 Urine Urobilinogen Normal (NORMAL) 06/15/19 11:25 Ur Leukocyte Esterase 1+ (NEGATIVE) 06/15/19 11:25 Urine RBC 3-5 /HPF (0-3) A 06/15/19 11:25 Urine WBC 5-10 /HPF (0-5) A 06/15/19 11:25 Ur Squamous Epith Cells Few /HPF (NEGATIVE) 06/15/19 11:25 Urine Bacteria Trace /HPF (NEGATIVE) 06/15/19 11:25 Urine Mucus Few /HPF (NEGATIVE) 06/15/19 11:25 Ur Culture Indicated? Yes/culture set up 06/15/19 11:25 - Plan (1) Weakness Status: Acute Plan: SERIAL CE, CXR EKG ON ADMISSION. CT HEAD ON ADMISSION, CONTINUE BP CO NTROL, BS CONTROL. GENTLE IV HYDRATION. REPREAT AM CBC CMP (2) Dehydration Status: Acute (3) UTI (urinary tract infection) Status: Acute Plan: IV ROCEPHIN, UC COLLECTED (4) Hx of atrial fibrillation without current medication Status: Acute Plan: due to hx of afib and recent cva, will start on eliquis 5mg po bid
[2019-06-17] MEDS ORDERED: ELIQUIS ONE (14:17)
--- NOTE | 2019-06-17 14:36 | RAD ---
HISTORY: Chest congestion Study: Single-view chest, done portably Comparison: 06/14/2019. Technique: Examination is slightly expiratory. Findings: There is mild accentuation of the transverse cardiac diameter and crowding bronchovascular markings. Trachea is midline. There is mild cardiomegaly. Lungs and pleural spaces are clear. Osseous structures are intact. IMPRESSION: Mild cardiomegaly without acute cardiopulmonary disease. Reported By:
--- NOTE | 2019-06-17 14:41 | RAD ---
HISTORY: Abdominal distension Study: Acute abdominal series Comparison: Chest x-ray done 06/17/2019 Findings: The trachea is midline. The cardiac silhouette is mildly enlarged. The lungs are clear without focal infiltrate or effusion. The bony thorax is unremarkable. Flat plate and upright evaluation of the abdomen demonstrates a slight increase in small gas in a nonspecific pattern. Findings may represent very small bowel ileus. No bowel obstruction or perforation is seen. There is no evidence of free intraperitoneal or fluid.. No pathological soft tissue mass or calcification can be observed. The bony structures are grossly intact. There are surgical clips from cholecystectomy. IMPRESSION: 1. Mild cardiomegaly without acute cardiopulmonary disease 2. Mild small bowel ileus without bowel obstruction or perforation. Reported By:
[2019-06-17] MEDS: ELIQUIS PO SCH ×2 (14:47→20:45)
[2019-06-17] MEDS: COLACE CAP 100 MG PO SCH (20:44)
[2019-06-17] MEDS: MILK OF MAGNESIA PO SCH (20:46)
[2019-06-17] MEDS: NS 1000 ML 1,000 ML IV SCH (20:55)
[2019-06-18] MEDS: NS 1000 ML 1,000 ML IV SCH ×2 (03:51→20:03)
[2019-06-18] MEDS: TYLENOL 325 MG TAB PO PRN ×2 (03:51→20:40)
[2019-06-18 05:26] LABS: BASOPHILS # (AUTO) 0.1 X10^3/uL (0.0-0.1); BASOPHILS % (AUTO) 0.6 % (0.2-1.0); EOSINOPHILS # (AUTO) 0.2 x10^3/uL (0.0-0.2); EOSINOPHILS % (AUTO) 1.2 % (0.9-2.9); HEMATOCRIT 34.5 % (36.0-47.0); HEMOGLOBIN 11.3 g/dL (12.0-16.0); LYMPHOCYTES # (AUTO) 4.7 X10^3/uL (1.3-2.9); LYMPHOCYTES % (AUTO) 26.7 % (21.0-51.0); MEAN CORPUSCULAR HEMOGLOBIN 29.1 pg (27.0-34.0); MEAN CORPUSCULAR HGB CONC 32.9 g/dL (33.0-35.0); MEAN CORPUSCULAR VOLUME 88.5 fL (80.0-100.0); MEAN PLATELET VOLUME 8.7 fL (7.4-11.0); MONOCYTES # (AUTO) 1.4 x10^3/uL (0.3-0.8); MONOCYTES % (AUTO) 7.8 % (0.0-13.0); NEUTROPHILS # (AUTO) 11.3 x10^3/uL (2.2-4.8); NEUTROPHILS % (AUTO) 63.7 % (42.0-75.0); PLATELET COUNT 344 X10^3/uL (150.0-450.0); RED CELL DISTRIBUTION WIDTH 12.8 % (11.6-16.5); WHITE BLOOD COUNT 17.7 X10^3/uL (3.6-10.0)
[2019-06-18 05:30] LABS: ALBUMIN 2.8 g/dL (3.4-5.0); CALCIUM 8.5 mg/dL (8.5-10.1); CARBON DIOXIDE 24.3 mmol/L (21-32); COR CA(FOR HYPOALB) 9.5 mg/dL (8.5-10.1); CREATININE 1.57 mg/dL (0.55-1.02); TOTAL PROTEIN 6.9 g/dL (6.4-8.2)
[2019-06-18] MEDS: HumuLIN R SC PRN ×2 (05:51→21:30)
[2019-06-18] MEDS ORDERED: LEXAPRO ONE (07:11)
[2019-06-18] MEDS: DIOVAN TAB 80 MG PO SCH (08:40)
[2019-06-18] MEDS: ROCEPHIN VIAL 1 GRAM IVP SCH (08:40)
[2019-06-18] MEDS: LEXAPRO PO SCH (08:41)
[2019-06-18] MEDS: ASPIRIN EC 81 MG PO SCH (08:41)
[2019-06-18] MEDS: TENORMIN PO SCH ×2 (08:41→20:02)
[2019-06-18] MEDS: PLAVIX PO SCH (08:45)
[2019-06-18] MEDS: ELIQUIS PO SCH ×2 (08:45→20:02)
[2019-06-18] MEDS: ZITHROMAX INJ 500 MG VIAL 500 MG in NS 250 ML IV 250 ML IV SCH (08:46)
--- NOTE | 2019-06-18 10:55 | VAS ---
History: TIA Study: Carotid duplex ultrasound Comparison: None Findings: Images do not show significant plaque formation. There is a solid 9.7 x 7.4 mm hyperechoic mass in the left lobe of the thyroid inferiorly. There is a complex overall hypoechoic mass in the right lobe measuring up to 1.28 cm with a central calcification. There is antegrade flow in the vertebral arteries. Peak systolic velocity in the right internal carotid artery is 56 centimeters/second and in the distal common carotid artery is 52.3 for ratio of near 1. On the left peak systolic velocity in the internal carotid artery is 68.5 centimeters/second compared to 42.3 in the distal left common carotid artery for a ratio of 1.6. Impression: 1. No evidence for significant plaque formation or carotid stenosis 2. Bilateral thyroid nodules Reported By:
--- NOTE | 2019-06-18 12:16 | CT ---
History: Abdominal distention Study: CT of the abdomen and pelvis without IV contrast but with oral contrast. Sagittal and coronal reformations were provided. Dose reduction techniques were utilized. Comparison: None Findings: The visualized lung bases are grossly clear. The gallbladder surgically absent. There is no biliary dilatation. The liver and spleen and pancreas and adrenal glands are unremarkable. There is an exophytic left upper pole renal mass measuring 2.4 cm diameter, of similar attenuation to left renal cortex. There is a 1.5 cm partially exophytic mass posteriorly and inferiorly in the left kidney. There is peripheral renal vascular calcification on the left. The left kidney is small compared to the right measuring 8.6 cm sagittal length compared to 11.64 cm on the right. There is sigmoid diverticulosis without stranding of fat planes. There is also less prominent diverticular disease in the remainder of the colon. There is no small bowel distention. There is a 1 cm wide defect in the mid and upper and epigastric abdominal wall with herniation of peritoneal fat but not bowel. The largest fat containing hernia is above the umbilicus measuring 5.8 cm diameter. Uterus is absent. There is no aortic aneurysm or adenopathy. The IVC is flattened. No significant bony abnormality is demonstrated. The appendix is normal. The urinary bladder is unremarkable. Impression: 1. Diverticulosis most severe in the sigmoid colon without acute inflammation 2. No bowel distention 3. Small left kidney compared to the right 4. Multiple ventral abdominal wall defects with the largest fat containing hernia above the umbilicus 5. Exophytic left renal masses likely representing hyperdense cysts Reported By:
[2019-06-18 15:20] LABS: FREE T4 (FREE THYROXINE) 1.03 ng/dL (0.76-1.46); TSH (3RD GENERATION) 0.893 uIU/mL (0.358-3.74)
[2019-06-18] MEDS: COLACE CAP 100 MG PO SCH (20:02)
[2019-06-18] MEDS: MILK OF MAGNESIA PO SCH (20:03)
[2019-06-19] MEDS: TYLENOL 325 MG TAB PO PRN ×2 (03:31→20:30)
--- NOTE | 2019-06-19 04:06 | MRI ---
MRI brain without contrast Indication: TIA, recent stroke with residual left-sided weakness Technique: Multisequence, multiplanar MR images of the brain were obtained without IV contrast. Comparison: CT 06/14/2019 Findings: There is a small focus of restricted diffusion within the left zacarias radiata with corresponding low signal seen on the ADC map as well as associated T2 hyperintense signal, compatible with acute-early subacute infarction. There is a chronic infarct with associated encephalomalacia and ex vacuo dilatation of the right occipital lobe extending into the posterior and medial temporal lobe. No additional areas of restricted diffusion are identified. There is age-appropriate generalized cerebral atrophy with commensurate ventricular and sulcal enlargement. There are patchy areas of periventricular T2/FLAIR hyperintense signal, which are nonspecific but are likely on the basis of chronic microvascular ischemic change. There is no intracranial hemorrhage, extra-axial collection, hydrocephalus or mass. The major intracranial flow voids are present and unremarkable. The visualized paranasal sinuses and mastoid air cells are clear. The orbits and remaining extracranial structures are grossly unremarkable. Impression: Small acute-early subacute left zacarias radiata infarct. Remote infarct of the right temporal occipital lobe. Age related atrophy and mild microangiopathy. Reported By:
[2019-06-19] MEDS: NS 1000 ML 1,000 ML IV SCH ×2 (05:17→21:15)
[2019-06-19 05:24] LABS: BASOPHILS # (AUTO) 0.1 X10^3/uL (0.0-0.1); BASOPHILS % (AUTO) 0.8 % (0.2-1.0); EOSINOPHILS # (AUTO) 0.3 x10^3/uL (0.0-0.2); EOSINOPHILS % (AUTO) 1.8 % (0.9-2.9); HEMOGLOBIN 10.6 g/dL (12.0-16.0); LYMPHOCYTES # (AUTO) 3.8 X10^3/uL (1.3-2.9); LYMPHOCYTES % (AUTO) 23.6 % (21.0-51.0); MEAN CORPUSCULAR HEMOGLOBIN 29.5 pg (27.0-34.0); MEAN CORPUSCULAR HGB CONC 33.1 g/dL (33.0-35.0); MEAN CORPUSCULAR VOLUME 89.1 fL (80.0-100.0); MEAN PLATELET VOLUME 8.8 fL (7.4-11.0); MONOCYTES # (AUTO) 1.3 x10^3/uL (0.3-0.8); NEUTROPHILS # (AUTO) 10.5 x10^3/uL (2.2-4.8); NEUTROPHILS % (AUTO) 65.8 % (42.0-75.0); PLATELET COUNT 311 X10^3/uL (150.0-450.0); RED BLOOD COUNT 3.59 X10^6/uL (3.5-5.4); WHITE BLOOD COUNT 15.9 X10^3/uL (3.6-10.0)
[2019-06-19 05:35] LABS: ALBUMIN 2.7 g/dL (3.4-5.0); CALCIUM 8.3 mg/dL (8.5-10.1); CARBON DIOXIDE 23.6 mmol/L (21-32); COR CA(FOR HYPOALB) 9.3 mg/dL (8.5-10.1); CREATININE 1.65 mg/dL (0.55-1.02); TOTAL PROTEIN 6.5 g/dL (6.4-8.2)
[2019-06-19] MEDS: HumuLIN R SC PRN ×2 (05:46→11:37)
[2019-06-19] MEDS ORDERED: LEXAPRO ONE (08:05)
[2019-06-19] MEDS: ZITHROMAX INJ 500 MG VIAL 500 MG in NS 250 ML IV 250 ML IV SCH (08:57)
[2019-06-19] MEDS: ASPIRIN EC 81 MG PO SCH (08:58)
[2019-06-19] MEDS: TENORMIN PO SCH ×2 (08:58→20:29)
[2019-06-19] MEDS: ELIQUIS PO SCH ×2 (08:58→20:29)
[2019-06-19] MEDS: PLAVIX PO SCH (08:59)
[2019-06-19] MEDS: ROCEPHIN VIAL 1 GRAM IVP SCH (09:00)
[2019-06-19] MEDS: LEXAPRO PO SCH (09:08)
[2019-06-19] MEDS: DIOVAN TAB 80 MG PO SCH (09:08)
--- NOTE | 2019-06-19 11:33 | RAD ---
Chest AP portable Indication: Chest congestion Comparison: 06/17/2019 Findings: There is no pneumothorax, effusion or dense consolidation. Heart size is prominent. Monitoring leads obscure detail. Impression: Cardiomegaly without other convincing acute abnormality. Position limits sensitivity. Reported By:
[2019-06-19] MEDS: MILK OF MAGNESIA PO SCH (20:29)
[2019-06-19] MEDS: COLACE CAP 100 MG PO SCH (20:29)
[2019-06-20] MEDS: TYLENOL 325 MG TAB PO PRN ×2 (05:13→20:25)
[2019-06-20 05:27] LABS: BASOPHILS # (AUTO) 0.1 X10^3/uL (0.0-0.1); BASOPHILS % (AUTO) 0.7 % (0.2-1.0); EOSINOPHILS # (AUTO) 0.3 x10^3/uL (0.0-0.2); EOSINOPHILS % (AUTO) 1.8 % (0.9-2.9); HEMATOCRIT 34.1 % (36.0-47.0); LYMPHOCYTES # (AUTO) 4.4 X10^3/uL (1.3-2.9); LYMPHOCYTES % (AUTO) 26.2 % (21.0-51.0); MEAN CORPUSCULAR HGB CONC 32.2 g/dL (33.0-35.0); MEAN CORPUSCULAR VOLUME 89.9 fL (80.0-100.0); MONOCYTES # (AUTO) 1.4 x10^3/uL (0.3-0.8); MONOCYTES % (AUTO) 8.7 % (0.0-13.0); NEUTROPHILS # (AUTO) 10.4 x10^3/uL (2.2-4.8); NEUTROPHILS % (AUTO) 62.6 % (42.0-75.0); PLATELET COUNT 314 X10^3/uL (150.0-450.0); RED BLOOD COUNT 3.79 X10^6/uL (3.5-5.4); RED CELL DISTRIBUTION WIDTH 12.9 % (11.6-16.5); WHITE BLOOD COUNT 16.6 X10^3/uL (3.6-10.0)
[2019-06-20 05:41] LABS: ALBUMIN 2.9 g/dL (3.4-5.0); CALCIUM 8.4 mg/dL (8.5-10.1); CARBON DIOXIDE 23.9 mmol/L (21-32); COR CA(FOR HYPOALB) 9.3 mg/dL (8.5-10.1); CREATININE 1.45 mg/dL (0.55-1.02); TOTAL PROTEIN 6.8 g/dL (6.4-8.2)
[2019-06-20] MEDS ORDERED: LEXAPRO ONE (07:32)
[2019-06-20] MEDS: PLAVIX PO SCH (08:16)
[2019-06-20] MEDS: TENORMIN PO SCH ×2 (08:17→20:19)
[2019-06-20] MEDS: DIOVAN TAB 80 MG PO SCH (08:17)
[2019-06-20] MEDS: ELIQUIS PO SCH ×2 (08:18→20:19)
[2019-06-20] MEDS: ROCEPHIN VIAL 1 GRAM IVP SCH (08:18)
[2019-06-20] MEDS: ASPIRIN EC 81 MG PO SCH (08:18)
[2019-06-20] MEDS: ZITHROMAX INJ 500 MG VIAL 500 MG in NS 250 ML IV 250 ML IV SCH (08:18)
[2019-06-20] MEDS: LEXAPRO PO SCH (08:19)
[2019-06-20 13:05] LABS: BILIRUBIN,URINE NEGATIVE (NEGATIVE); BLOOD/HEMOGLOBIN,URINE 2+ (NEGATIVE); GLUCOSE, URINE NEGATIVE (NEGATIVE); KETONES,URINE NEGATIVE (NEGATIVE); LEUKOCYTE ESTERASE ,URINE NEGATIVE (NEGATIVE); NITRITES,URINE NEGATIVE (NEGATIVE); PROTEIN,URINE 4+ (NEGATIVE); UROBILINOGEN,URINE NORMAL (NORMAL)
[2019-06-20 13:13] LABS: APPEARANCE,URINE SLIGHTLY HAZY (CLEAR); COLOR,URINE YELLOW (YELLOW)
[2019-06-20 13:20] LABS: BACTERIA,URINE TRACE /HPF (NEGATIVE); SQUAMOUS EPITHELIAL CELL,UR FEW /HPF (NEGATIVE)
[2019-06-20] MEDS ORDERED: LEVAQUIN PREMIX IV 500 MG 500 MG/100 ML BAG IV SCH (19:00)
[2019-06-20] MEDS: ZETIA TAB 10 MG PO SCH (19:23)
[2019-06-20] MEDS: NS 1000 ML 1,000 ML IV SCH (20:17)
[2019-06-20] MEDS: COLACE CAP 100 MG PO SCH (20:19)
[2019-06-20] MEDS: MILK OF MAGNESIA PO SCH (20:30)
[2019-06-21 05:22] LABS: BASOPHILS # (AUTO) 0.1 X10^3/uL (0.0-0.1); BASOPHILS % (AUTO) 0.7 % (0.2-1.0); EOSINOPHILS # (AUTO) 0.2 x10^3/uL (0.0-0.2); EOSINOPHILS % (AUTO) 1.7 % (0.9-2.9); HEMATOCRIT 32.2 % (36.0-47.0); HEMOGLOBIN 10.7 g/dL (12.0-16.0); LYMPHOCYTES # (AUTO) 3.7 X10^3/uL (1.3-2.9); LYMPHOCYTES % (AUTO) 25.7 % (21.0-51.0); MEAN CORPUSCULAR HEMOGLOBIN 29.4 pg (27.0-34.0); MEAN CORPUSCULAR HGB CONC 33.1 g/dL (33.0-35.0); MEAN CORPUSCULAR VOLUME 88.8 fL (80.0-100.0); MEAN PLATELET VOLUME 8.4 fL (7.4-11.0); MONOCYTES # (AUTO) 1.1 x10^3/uL (0.3-0.8); MONOCYTES % (AUTO) 7.8 % (0.0-13.0); NEUTROPHILS # (AUTO) 9.3 x10^3/uL (2.2-4.8); NEUTROPHILS % (AUTO) 64.1 % (42.0-75.0); PLATELET COUNT 288 X10^3/uL (150.0-450.0); RED BLOOD COUNT 3.63 X10^6/uL (3.5-5.4); RED CELL DISTRIBUTION WIDTH 12.8 % (11.6-16.5); WHITE BLOOD COUNT 14.5 X10^3/uL (3.6-10.0)
[2019-06-21 05:42] LABS: ALBUMIN 2.6 g/dL (3.4-5.0); CALCIUM 8.4 mg/dL (8.5-10.1); COR CA(FOR HYPOALB) 9.5 mg/dL (8.5-10.1); CREATININE 1.34 mg/dL (0.55-1.02); TOTAL PROTEIN 6.5 g/dL (6.4-8.2)
[2019-06-21] MEDS ORDERED: LEXAPRO ONE (08:33)
[2019-06-21] MEDS: ELIQUIS PO SCH (08:49)
[2019-06-21] MEDS: TENORMIN PO SCH (08:50)
[2019-06-21] MEDS: DIOVAN TAB 80 MG PO SCH (08:50)
[2019-06-21] MEDS: ASPIRIN EC 81 MG PO SCH (08:51)
[2019-06-21] MEDS: LEXAPRO PO SCH (08:51)
[2019-06-21] MEDS: PLAVIX PO SCH (08:51)
[2019-06-21] MEDS: ROCEPHIN VIAL 1 GRAM IVP SCH (08:52)
[2019-06-21] MEDS: ZETIA TAB 10 MG PO SCH (08:52)
[2019-06-21 14:42] VITALS: BP 159/77
[2019-06-21] MEDS ORDERED: LEVAQUIN PREMIX IV 500 MG 500 MG/100 ML BAG IV SCH (21:00)
== END 2019-06-21 14:05 | disposition home or self-care (01) | DRG 65 ==
LOC: MED/SURG 19:14 → ER 19:14 → MED/SURG 23:39
PROVIDERS: ADMIT Internal Medicine; ATTEND Internal Medicine
DX: R50.9 Fever, unspecified; F32.89 Other specified depressive episodes; E86.0 Dehydration; E11.65 Type 2 diabetes mellitus with hyperglycemia; I63.9 Cerebral infarction, unspecified; D72.828 Other elevated white blood cell count; Z86.73 Personal history of transient ischemic attack (TIA), and cerebral infarction without residual deficits; N17.9 Acute kidney failure, unspecified; F41.8 Other specified anxiety disorders; R53.1 Weakness; N39.0 Urinary tract infection, site not specified; I10 Essential (primary) hypertension; I48.91 Unspecified atrial fibrillation; Z79.01 Long term (current) use of anticoagulants
CPT/HCPCS: 36415; 70450; 70551; 71010; 71045; 74022; 74176; 80053; 81001; 82270; 82550; 82553; 83036; 83630; 84439; 84443; 84484; 85025; 85610; 85730; 87040; 87045; 87086; 87427; 87449; 87502; 87899; 93005; 93306; 93880; 94760; 96365; 96367; 96374; 99217; 99221; 99231; 99284; A4222; G0378; J0456; J0696; J1815; J1956; J2405; J3490; J7030; J7050

== ENCOUNTER 2021-12-02 13:18 | Inpatient (IN) ==
[2021-12-02] MEDS ORDERED: NS 1,000 ML IV 1,000 ML ONE (13:36)
[2021-12-02] MEDS ORDERED: APRESOLINE INJ 20 MG VIAL ONE (13:36)
[2021-12-02] MEDS ORDERED: APRESOLINE INJ 20 MG VIAL IVP ONE ×3 (13:43→17:07)
--- NOTE | 2021-12-02 13:45 | DR.NOSEBLE ---
HPI Time Seen Time Seen by Provider: 12/02/21 13:43 Primary Care Physician Primary Care Physician: WILLIAM HPI Comment HPI Comment: PATIENT IS 66YR OLD FEMALE IN ER WITH BILATERAL NOSE BLEED ON ELIQUIS AND IS HAVING ELEVATED BP ALSO. HISTORY HYPERTENSION ON MEDICATION BUT HAVE NOT TAKEN BP MEDS TODAY. SHE WOKE UP 12:30PM TODAY BLEEDING PROFUSELY FROM BOTH NORTRILS. BLEEDING WORSE ON THE RIGHT SIDE. PRESSURE OVER THE NOSE DID NOT STOP THE BLEEDING. PATIENT TAKES 5MG ELIQUIS TWO TIMES DAILY. DENIES TRAUMA. Complaints Chief Complaint Doctors Comments: NOSE BLEED AND ELEVATED BP. Chief Complaint:: PT. C/O NOSEBLEED AND ELEVATED B/P. SPONTANEOUS ONSET OF NOSE BLEED @ 1225. PT. HAS NO HX. OF NOSEBLEED. PT. HAS NOT TAKEN ANY OF HER HOME MEDICATIONS THIS MORNING. B/P @ HOME WAS 189/100. PT. DENIES PAIN. RIGHT NARE BLEEDING MORE THAN THE LEFT. COVID-19 Coronavirus risk:travel/contact w/high risk person: No Has patient experienced Coronavirus symptoms: No Reviewed Nurses Notes Reviewed: Yes Source History Provided: Patient and Family Member Mode of Arrival Mode of Arrival: Ambulatory Timing Onset of Chief Complaint: 12/02/21 Duration Bleeding: Currently Present Duration: Minutes Location Location: Both, Naris and Mouth Severity Severity: Severe Measure: Cups Bleeding:: Uncontrolled Associated Signs and Symptoms Associated Signs and Symptoms: denies None PMH PMH Past Medical History: Yes Past Medical History: Anxiety, CVA, Depression, Diabetes and Hypertension Past Surgical History: Yes Surgical History: Cholecystectomy, Hysterectomy, Lithotripsy and Other Family History History of Family Medical Conditions: Yes Family Medical History: Cancer and Hypertension Social History Does patient currently use any type of tobacco product: No Have you used tobacco products in the last 12 months: No Type of Tobacco Use: None Does any household member use tobacco: No Alcohol Use: None Do you use any recreational Drugs:: No Lives With: Family Lives Where: Home Travel Risk Coronavirus risk:travel/contact w/high risk person: No Has patient experienced Coronavirus symptoms: No Infectious screening In the last 2 months have you had wt loss of >10#?: NO Have you had fever, night sweats or hemotysis?: No Have you traveled outside the country in the last 6 months?: No Isolation: Standard ROS Review of Systems Constitutional: No Symptoms Reported and See HPI; negative Fever, Weakness and Fatigue Eyes: No Symptoms Reported and See HPI ENTM: No Symptoms Reported and See HPI; negative Nose Discharge and Nose Congestion Respiratoy: No Symptoms Reported and See HPI; negative Moist Cough, Short of Breath and Wheezing Cardiovascular: No Symptoms Reported and See HPI; negative Chest Pain Gastrointestinal/Abdominal: No Symptoms Reported and See HPI; negative Abdominal Pain, Diarrhea, Nausea and Vomiting Genitourinary: No Symptoms Reported and See HPI; negative Dysuria and Hematuria Neurological: No Symptoms Reported and See HPI; negative Headache, Weakness and Dizziness Musculoskeletal: No Symptoms Reported and See HPI; negative Back Pain Integumentary: No Symptoms Reported and See HPI; negative Rash and Juandice Hematologic/Lymphatic: No Symptoms Reported, See HPI, Easy Bleeding and Easy Bruising Endocrine: No Symptoms Reported and See HPI; negative Increased Thirst and Increased Urine Psychiatric: No Symptoms Reported and See HPI All Other Systems: Reviewed and Negative PE Vital Signs Vitals: Temperature 97.8 F Pulse Rate [Left Brachial] 74 Pulse Rate 74 Respiratory Rate 18 Blood Pressure [Left Arm] 180/80 Blood Pressure 168/74 O2 Sat by Pulse Oximetry 92 General Limitations: No Limitations General Appearance: Alert and In No Apparent Distress Head Head Exam: Normal Inspection, Atraumatic and Normocephalic Eyes Eye exam: Normal Appearance and PERRL; negative Scleral Icterus and Conjunctival Injection Eyelids: Normal Inspection: Bilateral Pupils: Regular, Round: Bilateral and Reactive: Bilateral Sclera/Conjunctival: Normal Inspection: Bilateral ENT ENT Exam: Normal Exam, Normal Oropharynx, Normal External Ear Exam and TM's Normal Bilaterally External Ear Exam: Normal External Inspection TM/Canal Exam: Bilateral: Normal Nose Exam: Other (EPISTAXIS, BILAT. RT GREATER THAN LEFT.); negative Sinus Tenderness and Nasal Deviation Nasal Speculum Exam: Bilateral: Normal Mouth Exam: Normal Inspection; negative Lip Swelling and Tongue Swelling Throat Exam: Normal Inspection; negative Tonsillar Erythema, Tonsillomegaly and Tonsillar Exudate Neck Neck Exam: Normal Inspection and Trachea Midline; negative Tenderness Chest Chest Inspection: Normal Inspection and Symmetric Chest Wall Rise; negative Tenderness Respiratory Respiratory Exam: Normal Lung Sounds Bilat; negative Accessory Muscle Use, Chest Wall Tenderness and Respiratory Distress Respiratory Exam: Bilateral: Clear to Auscultation Cardiovascular Cardiovascular Exam: Regular Rate, Normal Rhythm and Normal Heart Sounds; negative Systolic Murmur and Diastolic Murmur Abdominal Exam Abdominal Exam: Normal Inspection, Normal Bowel Sounds and Soft; negative Tenderness Extremities Extremities Exam: Normal Inspection; negative Normal Capillary Refill Back Back Exam: Normal Inspection; negative (R) CVA Tenderness and (L) CVA Tenderness Neurologic Neurological Exam: Alert and Oriented X3; negative Motor Sensory Deficit Psychiatric Psychiatric Exam: Normal Affect and Normal Mood Skin Skin Exam: Warm, Dry, Intact and Normal Color MDM Additional Information Obtained Additional Information Obtained From: Old Records, Family and PCP Differential Diagnosis Differential Diagnosis: Anterior Nasal Bleed, Coagulopathy, Posterior Nasal Bleed and Hypertension Differential Diagnosis Comment: ANEMIA. COURSE Treatment Treatment: LABS DISCUSSED WITH PATIENT WHILE IN ER. PATIENT NOSEBLEED CONTINUE AND REPEAT H&L IS INDICATE DECREASE HEMOGLOBIN. RIGHT NASAL TAMPON PLACED AND BLEEDING SLIGHTLY DECREASE. WILL ADMITTED TO HOSPITAL FOR FURTHER MANAGEMENT. Consultation Consultation Comments: DISCUSSED PATIENT WITH DR. THOMAS. HE WILL ADMIT PATIENT. Education/Counseling Education/Counseling: Patient and Family Educated On: Diagnosis ROR Labs Reviewed Laboratory Results Reviewed?: Yes Result Diagrams: 12/06/21 05:36 12/06/21 05:36 Laboratory: WBC 11.5 X10^3/uL (3.6-10.0) H 12/04/21 05:24 RBC 3.18 X10^6/uL (3.5-5.4) L 12/04/21 05:24 Hgb 9.4 g/dL (12.0-16.0) L 12/04/21 05:24 Hct 28.7 % (36.0-47.0) L 12/04/21 05:24 MCV 90.2 fL (80.0-100.0) 12/04/21 05:24 MCH 29.6 pg (27.0-34.0) 12/04/21 05:24 MCHC 32.9 g/dL (33.0-35.0) L 12/04/21 05:24 RDW 13.8 % (11.6-16.5) 12/04/21 05:24 Plt Count 291 X10^3/uL (150.0-450.0) 12/04/21 05:24 MPV 8.9 fL (7.4-11.0) 12/04/21 05:24 Neut % (Auto) 70.6 % (42.0-75.0) 12/04/21 05:24 Lymph % (Auto) 18.6 % (21.0-51.0) L 12/04/21 05:24 [place] % (Auto) 8.4 % (0.0-13.0) 12/04/21 05:24 Eos % (Auto) 1.7 % (0.9-2.9) 12/04/21 05:24 Baso % (Auto) 0.7 % (0.2-1.0) 12/04/21 05:24 Neut # (Auto) 8.1 x10^3/uL (2.2-4.8) H 12/04/21 05:24 Lymph # (Auto) 2.1 X10^3/uL (1.3-2.9) 12/04/21 05:24 [place] # (Auto) 1.0 x10^3/uL (0.3-0.8) H 12/04/21 05:24 Eos # (Auto) 0.2 x10^3/uL (0.0-0.2) 12/04/21 05:24 Baso # (Auto) 0.1 X10^3/uL (0.0-0.1) 12/04/21 05:24 Absolute Nucleated RBC 0.0 /100WBC 12/04/21 05:24 PT 15.9 SECONDS (11.8-14.3) 12/03/21 05:29 INR Target Range - 12/03/21 05:29 INR 1.33 (0.8-1.3) H 12/03/21 05:29 APTT 34.2 SECONDS (22.9-36.5) 12/03/21 05:29 PTT Comment - 12/03/21 05:29 Sodium 143 mmol/L (136-145) 12/03/21 05:29 Corrected Sodium 145 mmol/L (136-145) 12/03/21 05:29 Potassium 4.6 mmol/L (3.5-5.1) 12/03/21 05:29 Chloride 110 mmol/L (98-107) H 12/03/21 05:29 Carbon Dioxide 23.0 mmol/L (21-32) 12/03/21 05:29 BUN 43 mg/dL (7-18) H 12/03/21 05:29 Creatinine 2.08 mg/dL (0.55-1.02) H 12/03/21 05:29 Est GFR (MDRD) Af Amer 31 (>60) L 12/03/21 05:29 Est GFR (MDRD) Non-Af 25 (>60) L 12/03/21 05:29 Glucose 171 mg/dL (65-99) H 12/03/21 05:29 POC Glucose (mg/dL) 179 mg/dL (65-99) H 12/02/21 20:16 Calcium 7.7 mg/dL (8.5-10.1) L 12/03/21 05:29 Corrected Calcium 8.8 mg/dL (8.5-10.1) 12/03/21 05:29 Total Bilirubin 0.30 mg/dL (0.2-1.0) 12/03/21 05:29 AST 12 Units/L (15-37) L 12/03/21 05:29 ALT 13 Units/L (12-78) 12/03/21 05:29 Alkaline Phosphatase 74 Units/L (46-116) 12/03/21 05:29 Total Protein 6.4 g/dL (6.4-8.2) 12/03/21 05:29 Albumin 2.6 g/dL (3.4-5.0) L 12/03/21 05:29 Globulin 3.8 g/dL (2.5-4.5) 12/03/21 05:29 Albumin/Globulin Ratio 0.7 Ratio (1.1-2.1) L 12/03/21 05:29 Specimen Type Clean catch urine 12/03/21 04:20 Urine Color Straw (YELLOW) 12/03/21 04:20 Urine Appearance Clear (CLEAR) 12/03/21 04:20 Urine pH 6.0 (5.0 - 8.0) 12/03/21 04:20 Ur Specific [place] 1.015 (1.000-1.030) 12/03/21 04:20 Urine Protein 4+ (NEGATIVE) 12/03/21 04:20 Urine Glucose (UA) 1+ (NEGATIVE) 12/03/21 04:20 Urine Ketones Negative (NEGATIVE) 12/03/21 04:20 Urine Occult Blood 2+ (NEGATIVE) 12/03/21 04:20 Urine Nitrite Negative (NEGATIVE) 12/03/21 04:20 Urine Bilirubin Negative (NEGATIVE) 12/03/21 04:20 Urine Urobilinogen Normal (NORMAL) 12/03/21 04:20 Ur Leukocyte Esterase Negative (NEGATIVE) 12/03/21 04:20 Urine RBC None seen /HPF (0-3) 12/03/21 04:20 Urine WBC 0-2 /HPF (0-5) 12/03/21 04:20 Ur Squamous Epith Cells Few /HPF (NEGATIVE) 12/03/21 04:20 Urine Bacteria Trace /HPF (NEGATIVE) 12/03/21 04:20 Ur Culture Indicated? No/not indicated 12/03/21 04:20 Special/Misc Test See scanned report 12/02/21 18:38 Blood Type B POSITIVE 12/02/21 14:04 Antibody Screen Negative 12/02/21 14:04 Opioid Opioid Risk Tool Age (Loy box if 16-45): No History of Preadolescent Sexual Abuse: No Total: 0 Total Score Risk Category: Low Risk Copyright: Kunal WILSON predicting aberrant behaviors Diagnosis Discharge Problem: Acute posterior epistaxis, Hypercoagulable state, Acute renal insufficiency Hypertension Qualifiers: Hypertension type: primary hypertension Qualified Code(s): I10 - Essential (primary) hypertension Instructions Instructions: Weakness, [id number] Living With Diabetes Bleeding Precautions When on Anticoagulant Therapy, Adult Nosebleed, Adult, [id number] Managing Your Hypertension Forms: Patient Portal
[2021-12-02] MEDS: NS 1,000 ML IV 1,000 ML IV SCH (13:47)
[2021-12-02] MEDS ORDERED: NS 1,000 ML IV 1,000 ML IV SCH (14:00)
[2021-12-02 14:15] LABS: BASOPHILS # (AUTO) 0.1 X10^3/uL (0.0-0.1); BASOPHILS % (AUTO) 0.7 % (0.2-1.0); EOSINOPHILS # (AUTO) 0.2 x10^3/uL (0.0-0.2); HEMATOCRIT 30.3 % (36.0-47.0); HEMOGLOBIN 10.1 g/dL (12.0-16.0); LYMPHOCYTES # (AUTO) 1.7 X10^3/uL (1.3-2.9); LYMPHOCYTES % (AUTO) 16.8 % (21.0-51.0); MEAN CORPUSCULAR HGB CONC 33.4 g/dL (33.0-35.0); MEAN CORPUSCULAR VOLUME 89.9 fL (80.0-100.0); MEAN PLATELET VOLUME 8.2 fL (7.4-11.0); MONOCYTES # (AUTO) 0.7 x10^3/uL (0.3-0.8); MONOCYTES % (AUTO) 7.6 % (0.0-13.0); NEUTROPHILS # (AUTO) 7.2 x10^3/uL (2.2-4.8); NEUTROPHILS % (AUTO) 72.9 % (42.0-75.0); RED BLOOD COUNT 3.37 X10^6/uL (3.5-5.4); RED CELL DISTRIBUTION WIDTH 13.9 % (11.6-16.5); WHITE BLOOD COUNT 9.8 X10^3/uL (3.6-10.0)
[2021-12-02 14:25] LABS: ALBUMIN 2.6 g/dL (3.4-5.0); CALCIUM 7.9 mg/dL (8.5-10.1); CARBON DIOXIDE 23.2 mmol/L (21-32); CREATININE 2.22 mg/dL (0.55-1.02); TOTAL PROTEIN 6.5 g/dL (6.4-8.2)
[2021-12-02] MEDS ORDERED: DIOVAN TAB 160 MG PO ONE (15:52)
[2021-12-02 16:44] LABS: HEMATOCRIT 30.1 % (36.0-47.0)
[2021-12-02] MEDS ORDERED: COREG TAB 12.5 MG PO ONE (18:06)
[2021-12-02 20:44] VITALS: BMI 34.7
[2021-12-03 04:41] LABS: BILIRUBIN,URINE NEGATIVE (NEGATIVE); BLOOD/HEMOGLOBIN,URINE 2+ (NEGATIVE); GLUCOSE, URINE 1+ (NEGATIVE); KETONES,URINE NEGATIVE (NEGATIVE); LEUKOCYTE ESTERASE ,URINE NEGATIVE (NEGATIVE); NITRITES,URINE NEGATIVE (NEGATIVE); PROTEIN,URINE 4+ (NEGATIVE); UROBILINOGEN,URINE NORMAL (NORMAL)
[2021-12-03 04:48] LABS: APPEARANCE,URINE CLEAR (CLEAR); COLOR,URINE STRAW (YELLOW)
[2021-12-03 04:49] LABS: BACTERIA,URINE TRACE /HPF (NEGATIVE); RBC,URINE NONE SEEN /HPF (0-3); SQUAMOUS EPITHELIAL CELL,UR FEW /HPF (NEGATIVE)
[2021-12-03] MEDS: NS 1,000 ML IV 1,000 ML IV SCH ×2 (05:04→17:27)
[2021-12-03] MEDS: COREG TAB 12.5 MG PO SCH ×2 (05:06→09:05)
[2021-12-03 06:30] LABS: BASOPHILS # (AUTO) 0.1 X10^3/uL (0.0-0.1); BASOPHILS % (AUTO) 0.6 % (0.2-1.0); EOSINOPHILS # (AUTO) 0.2 x10^3/uL (0.0-0.2); EOSINOPHILS % (AUTO) 1.6 % (0.9-2.9); HEMATOCRIT 28.9 % (36.0-47.0); HEMOGLOBIN 9.6 g/dL (12.0-16.0); LYMPHOCYTES # (AUTO) 2.2 X10^3/uL (1.3-2.9); MEAN CORPUSCULAR HEMOGLOBIN 29.7 pg (27.0-34.0); MEAN CORPUSCULAR HGB CONC 33.3 g/dL (33.0-35.0); MEAN CORPUSCULAR VOLUME 89.1 fL (80.0-100.0); MEAN PLATELET VOLUME 8.8 fL (7.4-11.0); MONOCYTES # (AUTO) 0.9 x10^3/uL (0.3-0.8); MONOCYTES % (AUTO) 7.4 % (0.0-13.0); NEUTROPHILS # (AUTO) 8.3 x10^3/uL (2.2-4.8); NEUTROPHILS % (AUTO) 71.4 % (42.0-75.0); RED BLOOD COUNT 3.25 X10^6/uL (3.5-5.4); RED CELL DISTRIBUTION WIDTH 13.8 % (11.6-16.5); WHITE BLOOD COUNT 11.7 X10^3/uL (3.6-10.0)
[2021-12-03 06:47] LABS: ALBUMIN 2.6 g/dL (3.4-5.0); CALCIUM 7.7 mg/dL (8.5-10.1); COR CA(FOR HYPOALB) 8.8 mg/dL (8.5-10.1); CREATININE 2.08 mg/dL (0.55-1.02); TOTAL PROTEIN 6.4 g/dL (6.4-8.2)
[2021-12-03] MEDS ORDERED: DIOVAN TAB 160 MG PO SCH (09:00)
[2021-12-03] MEDS ORDERED: LEXAPRO ONE (09:01)
[2021-12-03] MEDS: LEXAPRO PO SCH (09:06)
[2021-12-03] MEDS ORDERED: DIOVAN TAB 160 MG PO ONE (09:13)
[2021-12-03] MEDS ORDERED: COREG TAB 12.5 MG ONE (09:13)
[2021-12-03] MEDS: COREG TAB 25 MG PO SCH ×2 (09:15→21:30)
[2021-12-03] MEDS: DIOVAN TAB 160 MG PO SCH (09:16)
[2021-12-03] MEDS ORDERED: LOVENOX INJ 40 MG SYR SC SCH (21:00)
[2021-12-04 06:47] LABS: BASOPHILS # (AUTO) 0.1 X10^3/uL (0.0-0.1); BASOPHILS % (AUTO) 0.7 % (0.2-1.0); EOSINOPHILS # (AUTO) 0.2 x10^3/uL (0.0-0.2); EOSINOPHILS % (AUTO) 1.7 % (0.9-2.9); HEMATOCRIT 28.7 % (36.0-47.0); HEMOGLOBIN 9.4 g/dL (12.0-16.0); LYMPHOCYTES # (AUTO) 2.1 X10^3/uL (1.3-2.9); LYMPHOCYTES % (AUTO) 18.6 % (21.0-51.0); MEAN CORPUSCULAR HEMOGLOBIN 29.6 pg (27.0-34.0); MEAN CORPUSCULAR HGB CONC 32.9 g/dL (33.0-35.0); MEAN CORPUSCULAR VOLUME 90.2 fL (80.0-100.0); MEAN PLATELET VOLUME 8.9 fL (7.4-11.0); MONOCYTES % (AUTO) 8.4 % (0.0-13.0); NEUTROPHILS # (AUTO) 8.1 x10^3/uL (2.2-4.8); NEUTROPHILS % (AUTO) 70.6 % (42.0-75.0); RED BLOOD COUNT 3.18 X10^6/uL (3.5-5.4); RED CELL DISTRIBUTION WIDTH 13.8 % (11.6-16.5); WHITE BLOOD COUNT 11.5 X10^3/uL (3.6-10.0)
[2021-12-04] MEDS ORDERED: LEXAPRO ONE (08:29)
[2021-12-04] MEDS: COREG TAB 25 MG PO SCH ×2 (09:30→21:49)
[2021-12-04] MEDS: DIOVAN TAB 160 MG PO SCH (09:30)
[2021-12-04] MEDS: LEXAPRO PO SCH (09:30)
--- NOTE | 2021-12-04 13:50 | PCM.PROG ---
Progress Note Progress Note for Day of Date of Exam: 12/04/21 Subjective Subjective: Patient seen at bedside, no events overnight. She has been admitted for nose bleed. Patient has the nasal tampon in place. She states she did have some bleeding yesterday after she ate her meal. She states it was dripping down but then stopped. Denies any other bleeding. Labs reviewed Plan: will remove nasal tampon and assess bleeding. If continues to bleed then will re-apply pressure and continue to observe. Patient remains off her Eliquis, last dose Thur 1AM. Hgb remains stable. Monitor AM labs. Past Medical Family Social History Past Med/Fam/Surg Hx: No changes since H&P Allergies: Allergies morphine Adverse Reaction (Verified 12/02/21 13:28) Mixuvza-OMA-TyM Reductase Inhibitor [Itqwohr-Bwq-Whm Reductase Inhibitor] Adverse Reaction (Verified 12/02/21 13:28) Review of Systems ROS: No change since H&P Vital Signs and I&O's Vital Signs: Temperature 97.9 F Pulse Rate [Left Brachial] 71 Pulse Rate 74 Respiratory Rate 20 Blood Pressure [Left Arm] 182/84 Blood Pressure 168/74 O2 Sat by Pulse Oximetry 94 Intake and Output: Intake & Output 12/01/21 12/02/21 12/03/21 12/04/21 23:59 23:59 23:59 23:59 Intake Total 240 / 240 2353 / 2353 478 / 478 Balance 240 / 240 2353 / 2353 478 / 478 Physical Exam Oriented: Normal Eyes: Normal Ear: Normal Nose: Blood and Other (nasal tampon in place with dried blood streaks ) Throat: Normal Respiratory: Normal Cardiovascular: Normal Auscultation: Bowel Sounds: Normal Tenderness: Normal Skin: Normal Musculoskeletal: Normal Psychiatric: Normal Mood Description: Calm Affect: Normal Speech Pattern: Clear and Appropriate Laboratory and Diagnostics Result Diagrams: 12/04/21 05:24 12/03/21 05:29 Labs: Laboratory WBC 11.5 X10^3/uL (3.6-10.0) H 12/04/21 05:24 RBC 3.18 X10^6/uL (3.5-5.4) L 12/04/21 05:24 Hgb 9.4 g/dL (12.0-16.0) L 12/04/21 05:24 Hct 28.7 % (36.0-47.0) L 12/04/21 05:24 MCV 90.2 fL (80.0-100.0) 12/04/21 05:24 MCH 29.6 pg (27.0-34.0) 12/04/21 05:24 MCHC 32.9 g/dL (33.0-35.0) L 12/04/21 05:24 RDW 13.8 % (11.6-16.5) 12/04/21 05:24 Plt Count 291 X10^3/uL (150.0-450.0) 12/04/21 05:24 MPV 8.9 fL (7.4-11.0) 12/04/21 05:24 Neut % (Auto) 70.6 % (42.0-75.0) 12/04/21 05:24 Lymph % (Auto) 18.6 % (21.0-51.0) L 12/04/21 05:24 [place] % (Auto) 8.4 % (0.0-13.0) 12/04/21 05:24 Eos % (Auto) 1.7 % (0.9-2.9) 12/04/21 05:24 Baso % (Auto) 0.7 % (0.2-1.0) 12/04/21 05:24 Neut # (Auto) 8.1 x10^3/uL (2.2-4.8) H 12/04/21 05:24 Lymph # (Auto) 2.1 X10^3/uL (1.3-2.9) 12/04/21 05:24 [place] # (Auto) 1.0 x10^3/uL (0.3-0.8) H 12/04/21 05:24 Eos # (Auto) 0.2 x10^3/uL (0.0-0.2) 12/04/21 05:24 Baso # (Auto) 0.1 X10^3/uL (0.0-0.1) 12/04/21 05:24 Absolute Nucleated RBC 0.0 /100WBC 12/04/21 05:24 PT 15.9 SECONDS (11.8-14.3) 12/03/21 05:29 INR Target Range - 12/03/21 05:29 INR 1.33 (0.8-1.3) H 12/03/21 05:29 APTT 34.2 SECONDS (22.9-36.5) 12/03/21 05:29 PTT Comment - 12/03/21 05:29 Sodium 143 mmol/L (136-145) 12/03/21 05:29 Corrected Sodium 145 mmol/L (136-145) 12/03/21 05:29 Potassium 4.6 mmol/L (3.5-5.1) 12/03/21 05:29 Chloride 110 mmol/L (98-107) H 12/03/21 05:29 Carbon Dioxide 23.0 mmol/L (21-32) 12/03/21 05:29 BUN 43 mg/dL (7-18) H 12/03/21 05:29 Creatinine 2.08 mg/dL (0.55-1.02) H 12/03/21 05:29 Est GFR (MDRD) Af Amer 31 (>60) L 12/03/21 05:29 Est GFR (MDRD) Non-Af 25 (>60) L 12/03/21 05:29 Glucose 171 mg/dL (65-99) H 12/03/21 05:29 POC Glucose (mg/dL) 179 mg/dL (65-99) H 12/02/21 20:16 Calcium 7.7 mg/dL (8.5-10.1) L 12/03/21 05:29 Corrected Calcium 8.8 mg/dL (8.5-10.1) 12/03/21 05:29 Total Bilirubin 0.30 mg/dL (0.2-1.0) 12/03/21 05:29 AST 12 Units/L (15-37) L 12/03/21 05:29 ALT 13 Units/L (12-78) 12/03/21 05:29 Alkaline Phosphatase 74 Units/L (46-116) 12/03/21 05:29 Total Protein 6.4 g/dL (6.4-8.2) 12/03/21 05:29 Albumin 2.6 g/dL (3.4-5.0) L 12/03/21 05:29 Globulin 3.8 g/dL (2.5-4.5) 12/03/21 05:29 Albumin/Globulin Ratio 0.7 Ratio (1.1-2.1) L 12/03/21 05:29 Specimen Type Clean catch urine 12/03/21 04:20 Urine Color Straw (YELLOW) 12/03/21 04:20 Urine Appearance Clear (CLEAR) 12/03/21 04:20 Urine pH 6.0 (5.0 - 8.0) 12/03/21 04:20 Ur Specific [place] 1.015 (1.000-1.030) 12/03/21 04:20 Urine Protein 4+ (NEGATIVE) 12/03/21 04:20 Urine Glucose (UA) 1+ (NEGATIVE) 12/03/21 04:20 Urine Ketones Negative (NEGATIVE) 12/03/21 04:20 Urine Occult Blood 2+ (NEGATIVE) 12/03/21 04:20 Urine Nitrite Negative (NEGATIVE) 12/03/21 04:20 Urine Bilirubin Negative (NEGATIVE) 12/03/21 04:20 Urine Urobilinogen Normal (NORMAL) 12/03/21 04:20 Ur Leukocyte Esterase Negative (NEGATIVE) 12/03/21 04:20 Urine RBC None seen /HPF (0-3) 12/03/21 04:20 Urine WBC 0-2 /HPF (0-5) 12/03/21 04:20 Ur Squamous Epith Cells Few /HPF (NEGATIVE) 12/03/21 04:20 Urine Bacteria Trace /HPF (NEGATIVE) 12/03/21 04:20 Ur Culture Indicated? No/not indicated 12/03/21 04:20 Blood Type B POSITIVE 12/02/21 14:04 Antibody Screen Negative 12/02/21 14:04 Plan (1) Epistaxis: Status: Acute (2) Atrial fibrillation: Status: Acute Qualifiers: Atrial fibrillation type: unspecified chronic Qualified Code(s): I48.20 - Chronic atrial fibrillation, unspecified (3) HTN (hypertension): Status: Acute Qualifiers: Hypertension type: primary hypertension Qualified Code(s): I10 - Essential (primary) hypertension
[2021-12-05] MEDS: NS 1,000 ML IV 1,000 ML IV SCH ×3 (04:33→17:38)
[2021-12-05 06:25] LABS: CALCIUM 7.7 mg/dL (8.5-10.1); CARBON DIOXIDE 21.3 mmol/L (21-32); CREATININE 2.16 mg/dL (0.55-1.02)
[2021-12-05 06:33] LABS: BASOPHILS # (AUTO) 0.1 X10^3/uL (0.0-0.1); BASOPHILS % (AUTO) 0.6 % (0.2-1.0); EOSINOPHILS # (AUTO) 0.2 x10^3/uL (0.0-0.2); EOSINOPHILS % (AUTO) 1.9 % (0.9-2.9); HEMATOCRIT 26.4 % (36.0-47.0); LYMPHOCYTES # (AUTO) 2.3 X10^3/uL (1.3-2.9); LYMPHOCYTES % (AUTO) 20.8 % (21.0-51.0); MEAN CORPUSCULAR HEMOGLOBIN 30.6 pg (27.0-34.0); MEAN CORPUSCULAR VOLUME 90.1 fL (80.0-100.0); MEAN PLATELET VOLUME 8.4 fL (7.4-11.0); MONOCYTES # (AUTO) 0.9 x10^3/uL (0.3-0.8); MONOCYTES % (AUTO) 8.2 % (0.0-13.0); NEUTROPHILS # (AUTO) 7.4 x10^3/uL (2.2-4.8); NEUTROPHILS % (AUTO) 68.5 % (42.0-75.0); RED BLOOD COUNT 2.93 X10^6/uL (3.5-5.4); RED CELL DISTRIBUTION WIDTH 13.8 % (11.6-16.5); WHITE BLOOD COUNT 10.8 X10^3/uL (3.6-10.0)
[2021-12-05] MEDS ORDERED: LEXAPRO ONE (08:46)
[2021-12-05] MEDS: LEXAPRO PO SCH (08:59)
[2021-12-05] MEDS: COREG TAB 25 MG PO SCH ×2 (08:59→21:09)
[2021-12-05] MEDS: DIOVAN TAB 160 MG PO SCH (08:59)
--- NOTE | 2021-12-05 11:58 | PCM.PROG ---
Progress Note Progress Note for Day of Date of Exam: 12/05/21 Subjective Subjective: Patient seen at bedside, no events overnight. She has been admitted for nose bleed. She states she did not notice any more bleeding yesterday. She still has the nasal tampon in place. Denies any other symptoms. Hgb 9.0. Plan: will remove nasal tampon and assess bleeding. If continues to bleed then will re-apply pressure and continue to observe. Patient remains off her Eliquis, last dose Thur 1AM. Hgb remains stable. Monitor AM labs. Past Medical Family Social History Past Med/Fam/Surg Hx: No changes since H&P Allergies: Allergies morphine Adverse Reaction (Verified 12/02/21 13:28) Teqmkou-SYO-EvD Reductase Inhibitor [Xafqjkm-Ktf-Igd Reductase Inhibitor] Adverse Reaction (Verified 12/02/21 13:28) Review of Systems ROS: No change since H&P Vital Signs and I&O's Vital Signs: Temperature 97.7 F Pulse Rate [Left Brachial] 71 Pulse Rate 74 Respiratory Rate 24 Blood Pressure [Left Arm] 160/74 Blood Pressure 168/74 O2 Sat by Pulse Oximetry 95 Intake and Output: Intake & Output 12/02/21 12/03/21 12/04/21 12/05/21 23:59 23:59 23:59 23:59 Intake Total 240 / 240 2353 / 2353 1952 / 1952 723 / 723 Balance 240 / 240 2353 / 2353 1952 / 1952 723 / 723 Physical Exam Oriented: Normal Eyes: Normal Ear: Normal Nose: Blood and Other (nasal tampon in place with dried blood streaks ) Throat: Normal Respiratory: Normal Cardiovascular: Normal Auscultation: Bowel Sounds: Normal Tenderness: Normal Skin: Normal Musculoskeletal: Normal Psychiatric: Normal Mood Description: Calm Affect: Normal Speech Pattern: Clear and Appropriate Laboratory and Diagnostics Result Diagrams: 12/05/21 05:51 12/05/21 05:51 Labs: Laboratory WBC 10.8 X10^3/uL (3.6-10.0) H 12/05/21 05:51 RBC 2.93 X10^6/uL (3.5-5.4) L 12/05/21 05:51 Hgb 9.0 g/dL (12.0-16.0) L 12/05/21 05:51 Hct 26.4 % (36.0-47.0) L 12/05/21 05:51 MCV 90.1 fL (80.0-100.0) 12/05/21 05:51 MCH 30.6 pg (27.0-34.0) 12/05/21 05:51 MCHC 34.0 g/dL (33.0-35.0) 12/05/21 05:51 RDW 13.8 % (11.6-16.5) 12/05/21 05:51 Plt Count 269 X10^3/uL (150.0-450.0) 12/05/21 05:51 MPV 8.4 fL (7.4-11.0) 12/05/21 05:51 Neut % (Auto) 68.5 % (42.0-75.0) 12/05/21 05:51 Lymph % (Auto) 20.8 % (21.0-51.0) L 12/05/21 05:51 [place] % (Auto) 8.2 % (0.0-13.0) 12/05/21 05:51 Eos % (Auto) 1.9 % (0.9-2.9) 12/05/21 05:51 Baso % (Auto) 0.6 % (0.2-1.0) 12/05/21 05:51 Neut # (Auto) 7.4 x10^3/uL (2.2-4.8) H 12/05/21 05:51 Lymph # (Auto) 2.3 X10^3/uL (1.3-2.9) 12/05/21 05:51 [place] # (Auto) 0.9 x10^3/uL (0.3-0.8) H 12/05/21 05:51 Eos # (Auto) 0.2 x10^3/uL (0.0-0.2) 12/05/21 05:51 Baso # (Auto) 0.1 X10^3/uL (0.0-0.1) 12/05/21 05:51 Absolute Nucleated RBC 0.0 /100WBC 12/05/21 05:51 PT 15.9 SECONDS (11.8-14.3) 12/03/21 05:29 INR Target Range - 12/03/21 05:29 INR 1.33 (0.8-1.3) H 12/03/21 05:29 APTT 34.2 SECONDS (22.9-36.5) 12/03/21 05:29 PTT Comment - 12/03/21 05:29 Sodium 139 mmol/L (136-145) 12/05/21 05:51 Corrected Sodium 141 mmol/L (136-145) 12/05/21 05:51 Potassium 4.7 mmol/L (3.5-5.1) 12/05/21 05:51 Chloride 108 mmol/L (98-107) H 12/05/21 05:51 Carbon Dioxide 21.3 mmol/L (21-32) 12/05/21 05:51 BUN 42 mg/dL (7-18) H 12/05/21 05:51 Creatinine 2.16 mg/dL (0.55-1.02) H 12/05/21 05:51 Est GFR (MDRD) Af Amer 29 (>60) L 12/05/21 05:51 Est GFR (MDRD) Non-Af 24 (>60) L 12/05/21 05:51 Glucose 174 mg/dL (65-99) H 12/05/21 05:51 POC Glucose (mg/dL) 179 mg/dL (65-99) H 12/02/21 20:16 Calcium 7.7 mg/dL (8.5-10.1) L 12/05/21 05:51 Corrected Calcium 8.8 mg/dL (8.5-10.1) 12/03/21 05:29 Total Bilirubin 0.30 mg/dL (0.2-1.0) 12/03/21 05:29 AST 12 Units/L (15-37) L 12/03/21 05:29 ALT 13 Units/L (12-78) 12/03/21 05:29 Alkaline Phosphatase 74 Units/L (46-116) 12/03/21 05:29 Total Protein 6.4 g/dL (6.4-8.2) 12/03/21 05:29 Albumin 2.6 g/dL (3.4-5.0) L 12/03/21 05:29 Globulin 3.8 g/dL (2.5-4.5) 12/03/21 05:29 Albumin/Globulin Ratio 0.7 Ratio (1.1-2.1) L 12/03/21 05:29 Specimen Type Clean catch urine 12/03/21 04:20 Urine Color Straw (YELLOW) 12/03/21 04:20 Urine Appearance Clear (CLEAR) 12/03/21 04:20 Urine pH 6.0 (5.0 - 8.0) 12/03/21 04:20 Ur Specific [place] 1.015 (1.000-1.030) 12/03/21 04:20 Urine Protein 4+ (NEGATIVE) 12/03/21 04:20 Urine Glucose (UA) 1+ (NEGATIVE) 12/03/21 04:20 Urine Ketones Negative (NEGATIVE) 12/03/21 04:20 Urine Occult Blood 2+ (NEGATIVE) 12/03/21 04:20 Urine Nitrite Negative (NEGATIVE) 12/03/21 04:20 Urine Bilirubin Negative (NEGATIVE) 12/03/21 04:20 Urine Urobilinogen Normal (NORMAL) 12/03/21 04:20 Ur Leukocyte Esterase Negative (NEGATIVE) 12/03/21 04:20 Urine RBC None seen /HPF (0-3) 12/03/21 04:20 Urine WBC 0-2 /HPF (0-5) 12/03/21 04:20 Ur Squamous Epith Cells Few /HPF (NEGATIVE) 12/03/21 04:20 Urine Bacteria Trace /HPF (NEGATIVE) 12/03/21 04:20 Ur Culture Indicated? No/not indicated 12/03/21 04:20 Blood Type B POSITIVE 12/02/21 14:04 Antibody Screen Negative 12/02/21 14:04 Plan (1) Epistaxis: Status: Acute (2) Atrial fibrillation: Status: Acute Qualifiers: Atrial fibrillation type: unspecified chronic Qualified Code(s): I48.20 - Chronic atrial fibrillation, unspecified (3) HTN (hypertension): Status: Acute Qualifiers: Hypertension type: primary hypertension Qualified Code(s): I10 - Essential (primary) hypertension
[2021-12-05] MEDS ORDERED: AFRIN NASAL SPRAY PRN (18:58)
[2021-12-05] MEDS ORDERED: COLACE CAP 100 MG PO SCH (21:00)
[2021-12-06 06:56] LABS: BASOPHILS # (AUTO) 0.1 X10^3/uL (0.0-0.1); BASOPHILS % (AUTO) 0.6 % (0.2-1.0); EOSINOPHILS # (AUTO) 0.2 x10^3/uL (0.0-0.2); EOSINOPHILS % (AUTO) 2.3 % (0.9-2.9); HEMATOCRIT 25.5 % (36.0-47.0); HEMOGLOBIN 8.5 g/dL (12.0-16.0); LYMPHOCYTES # (AUTO) 2.6 X10^3/uL (1.3-2.9); LYMPHOCYTES % (AUTO) 27.4 % (21.0-51.0); MEAN CORPUSCULAR HEMOGLOBIN 29.9 pg (27.0-34.0); MEAN CORPUSCULAR HGB CONC 33.3 g/dL (33.0-35.0); MEAN CORPUSCULAR VOLUME 89.9 fL (80.0-100.0); MEAN PLATELET VOLUME 8.9 fL (7.4-11.0); MONOCYTES # (AUTO) 0.8 x10^3/uL (0.3-0.8); MONOCYTES % (AUTO) 8.9 % (0.0-13.0); NEUTROPHILS # (AUTO) 5.8 x10^3/uL (2.2-4.8); NEUTROPHILS % (AUTO) 60.8 % (42.0-75.0); RED BLOOD COUNT 2.84 X10^6/uL (3.5-5.4); RED CELL DISTRIBUTION WIDTH 13.8 % (11.6-16.5); WHITE BLOOD COUNT 9.5 X10^3/uL (3.6-10.0)
[2021-12-06 07:21] LABS: CALCIUM 7.6 mg/dL (8.5-10.1); CREATININE 2.49 mg/dL (0.55-1.02)
[2021-12-06] MEDS ORDERED: LEXAPRO ONE (08:41)
[2021-12-06] MEDS ORDERED: MILK OF MAGNESIA PO SCH (09:00)
[2021-12-06] MEDS ORDERED: NS 100 ML IV 100 ML with VENOFER 400 MG IV NR ×2 (09:44)
[2021-12-06] MEDS ORDERED: PROCRIT or EPOGEN VIAL 10,000 UNITS SC ONE (09:44)
[2021-12-06] MEDS: COREG TAB 25 MG PO SCH (10:00)
[2021-12-06] MEDS: DIOVAN TAB 160 MG PO SCH (10:00)
[2021-12-06] MEDS: LEXAPRO PO SCH (10:00)
[2021-12-06 15:54] VITALS: BP 136/62
== END 2021-12-06 14:30 | disposition home or self-care (01) | DRG 151 ==
LOC: MED/SURG 13:18 → ER 13:18 → MED/SURG 20:21
PROVIDERS: ADMIT Obstetrics & Gynecology Obstetrics; ATTEND Obstetrics & Gynecology Obstetrics
DX: R79.1 Abnormal coagulation profile; E11.65 Type 2 diabetes mellitus with hyperglycemia; I48.91 Unspecified atrial fibrillation; Z20.822 Contact with and (suspected) exposure to COVID-19; I10 Essential (primary) hypertension; R04.0 Epistaxis